=== PATIENT | female | born 1930 | race Caucasian/White ===

== ENCOUNTER 2016-12-10 13:40 | Observation (INO) | payer MEDICARE, OTHER ==
--- NOTE | 2016-12-10 14:31 | ER Document Report ---
ED Medical Screen (RME) - General Stated Complaint: CHEST PAIN Notes: Patient states she started experiencing chest pain with shortness of breath about 10:00 this morning, Was in a meeting with Dr. Jacob, and he gave her a nitroglycerin which relieved the pain. Patient feels fatigued, pain is in chest and back. No nausea or vomiting. Heart doctor is Dr. Matthews in [place]. Patient denies chest pain in triage, but states that her upper back still hurts. I have greeted and performed a rapid initial assessment of this patient. A comprehensive ED assessment and evaluation of the patient, analysis of test results and completion of the medical decision making process will be conducted by additional ED providers. TRAVEL OUTSIDE OF THE [place] 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
[2016-12-10 15:36] LABS: ABSOLUTE EOSINOPHILS # (AUTO) 0.1 10^3/uL (0.0-0.6); ABSOLUTE LYMPHOCYTES (AUTO) 1.6 10^3/uL (0.5-4.7); ABSOLUTE MONOCYTES (AUTO) 0.6 10^3/uL (0.1-1.4); BASOPHILS % (AUTO) 0.4 % (0-2); EOSINOPHILS % (AUTO) 1.8 % (0-6); HEMOGLOBIN 12.8 g/dL (12.0-15.5); HGB HCT DIFFERENCE 0.4; LYMPHOCYTES % (AUTO) 21.6 % (13-45); MEAN CORPUSCULAR HEMOGLOBIN 29.9 pg (27.0-33.4); MEAN CORPUSCULAR HGB CONC 33.7 g/dL (32.0-36.0); MEAN CORPUSCULAR VOLUME 89 fl (80-97); MONOCYTES % (AUTO) 7.9 % (3-13); RED BLOOD COUNT 4.28 10^6/uL (3.72-5.28); RED CELL DISTRIBUTION WIDTH 17.6 % (11.5-14.0); SEGMENTED NEUTROPHILS % (AUTO) 68.3 % (42-78); WHITE BLOOD COUNT 7.4 10^3/uL (4.0-10.5)
[2016-12-10 15:51] LABS: ALANINE AMINOTRANSFERASE 22 U/L (9-52); ALBUMIN 4.1 g/dL (3.5-5.0); ALKALINE PHOSPHATASE 108 U/L (38-126); ANION GAP 13 (5-19); ASPARTATE AMINO TRANSFERASE 16 U/L (14-36); BILIRUBIN,TOTAL 0.3 mg/dL (0.2-1.3); BLOOD UREA NITROGEN 16 mg/dL (7-20); CALCIUM 9.3 mg/dL (8.4-10.2); CARBON DIOXIDE 27 mmol/L (22-30); CHLORIDE 104 mmol/L (98-107); CREATINE KINASE 47 U/L (30-135); GLUCOSE 92 mg/dL (75-110); POTASSIUM 4.2 mmol/L (3.6-5.0); SODIUM 143.5 mmol/L (137-145); TOTAL PROTEIN 6.5 g/dL (6.3-8.2)
[2016-12-10 16:01] LABS: ANISOCYTOSIS 1+; CREATINE KINASE MB 0.33 ng/mL (<4.55); OVALOCYTES SLIGHT; SCHISTOCYTES SLIGHT; TOXIC GRANULATION SLIGHT; TROPONIN I < 0.012 ng/mL
--- NOTE | 2016-12-10 18:14 | ER Document Report ---
ED General - General Chief Complaint: Chest Pain Stated Complaint: CHEST PAIN Mode of Arrival: Ambulatory Information source: Patient Notes: 85-year-old female presents with complaints of chest pain radiating to her back associated with shortness of breath lightheadedness. Patient was given nitroglycerin by which resolved her chest pain. Patient admits to history of A. fib denies any previous cardiac history otherwise TRAVEL OUTSIDE OF THE [place] IN LAST 30 DAYS: No - HPI Onset: Just prior to arrival Onset/Duration: Sudden Quality of pain: Achy Severity: Mild Pain Level: 1 Associated symptoms: Chest pain, Shortness of breath Exacerbated by: Denies Relieved by: Denies Similar symptoms previously: No Recently seen / treated by doctor: No - Related Data Allergies/Adverse Reactions: No Known Allergies Allergy (Verified 01/06/16 17:57) Past Medical History - Social History Smoking Status: Never Smoker Cigarette use (# per day): No Chew tobacco use (# tins/day): No Smoking Education Provided: No Frequency of alcohol use: None Drug Abuse: None Family History: Reviewed & Not Pertinent, CAD, DM Patient has suicidal ideation: No Patient has homicidal ideation: No - Past Medical History Cardiac Medical History: Reports: Hx Atrial Fibrillation, Hx Coronary Artery Disease - on meds, Hx Hypertension - on meds Denies: Hx Heart Attack Pulmonary Medical History: Denies: Hx Asthma, Hx Bronchitis, Hx COPD, Hx Pneumonia Neurological Medical History: Denies: Hx Cerebrovascular Accident, Hx Seizures Renal/ Medical History: Denies: Hx Peritoneal Dialysis GI Medical History: Reports: Hx Diverticulitis, Hx Gastroesophageal Reflux Disease Musculoskeltal Medical History: 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 Denies recent illness. EENT: Denies eye, ear, throat, or mouth pain or symptoms. Denies nasal or sinus congestion or discharge. Denies throat, tongue, or mouth swelling or difficulty swallowing. CARDIOVASCULAR: Admits to chest pain RESPIRATORY: Admits shortness of breath. GASTROINTESTINAL: Denies abdominal pain or distention. Denies nausea, vomiting , or diarrhea. Denies blood in vomitus, stools, or per rectum. Denies black, tarry stools. Denies constipation. GENITOURINARY: Denies difficulty urinating, painful urination, burning, frequency, blood in urine, or discharge. FEMALE GENITOURINARY: Denies vaginal bleeding, heavy or abnormal periods, irregular periods. Denies vaginal discharge or odor. MUSCULOSKELETAL: Denies back or neck pain or stiffness. Denies joint pain or swelling. SKIN: Denies rash, lesions or sores. HEMATOLOGIC : Denies easy bruising or bleeding. LYMPHATIC: Denies swollen, enlarged glands. NEUROLOGICAL: Denies confusion or altered mental status. Denies passing out or loss of consciousness. Denies dizziness or lightheadedness. Denies headache. Denies weakness or paralysis or loss of use of either side. Denies problems with gait or speech. Denies sensory loss, numbness, or tingling. Denies seizures. PSYCHIATRIC: Denies anxiety or stress. Denies depression, suicidal ideation, or homicidal ideation. ALL OTHER SYSTEMS REVIEWED AND NEGATIVE. Dictation was performed using [employer] voice recognition software PHYSICAL EXAMINATION: GENERAL: Well-appearing, well-nourished and in no acute distress. HEAD: Atraumatic, normocephalic. EYES: Pupils equal round and reactive to light, extraocular movements intact, conjunctiva are normal. ENT: Nares patent, oropharynx clear without exudates. Moist mucous membranes. NECK: Normal range of motion, supple without lymphadenopathy LUNGS: Breath sounds clear to auscultation bilaterally and equal. No wheezes rales or rhonchi. HEART: Regular rate and rhythm without murmurs ABDOMEN: Soft, nontender, nondistended abdomen. No guarding, no rebound. No masses appreciated. Female : deferred Musculoskeletal: Normal range of motion, no pitting or edema. No cyanosis. NEUROLOGICAL: Cranial nerves grossly intact. Normal speech, normal gait. Normal sensory, motor exams PSYCH: Normal mood, normal affect. SKIN: Warm, Dry, normal turgor, no rashes or lesions noted. Course - Re-evaluation Re-evalutation: 12/10/16 19:16 Physical examination notes no significant abnormality, patient will be admitted to hospital service to trend the cardiac enzymes - Laboratory Result Diagrams: 12/10/16 15:10 12/10/16 15:10 Laboratory results interpreted by me: 12/10/16 15:10 RDW 17.6 H - Diagnostic Test Radiology reviewed: Image reviewed, Reports reviewed - EKG Interpretation by Me EKG shows normal: Sinus rhythm, [place], Intervals, QRS Complexes Discharge - Discharge Clinical Impression: Chest pain Qualifiers: Chest pain type: unspecified Qualified Code(s): R07.9 - Chest pain, unspecified Condition: Stable Disposition: ADMITTED OBSERVATION Admitting Provider: Hospitalist Unit Admitted: Telemetry Referrals: CAROLANN WILLIS MD [Primary Care Provider] - Follow up as needed
[2016-12-10] MEDS ORDERED: ACETAMINOPHEN 325 MG TABLET PO PRN (18:56)
[2016-12-10] MEDS ORDERED: ONDANSETRON HCL INJ/PF 4 MG/2 ML SDV IV PRN (18:56)
[2016-12-10] MEDS ORDERED: OXYCODONE-ACETAMINOPHEN 5-325 MG TABLET PO PRN (18:56)
--- NOTE | 2016-12-10 19:15 | PDOC H&P ---
History of Present Illness Admission Date/PCP: CAROLANN WILLIS MD Patient complains of: Chest pain History of Present Illness: RIGOBERTO MTZ is a 85 year old female presents to the emergency department from home with recurring chest pain, described as sharp, stabbing pain that starts between her shoulder blades radiates across her back and then through to her front substernal and is associated with shortness of breath, dizziness. It was relieved with a single sublingual nitroglycerin and she's been taking Tums getting some relief from last couple of weeks. She can think of no exacerbating factors in fact most of the episodes occur while at rest. She has similar episode in June 2016 but was found to be severely anemic with a hemoglobin of 4 and her symptoms resolved after transfusion. She has been receiving IV iron ever since until last week. She has undergone upper and lower endoscopy without any significant findings other than a hiatal hernia. She has no history of gastritis, esophagitis, GERD. Prior to that she had an episode of December 2015 was admitted to this hospital and underwent a cardiac rule out and ultimately a Cardiolite stress test that was interpreted as negative for acute cardiac ischemia. Evaluation in the emergency department so far is unrevealing we are asked to admit for further cardiac evaluation and management. Past Medical History Cardiac Medical History: Reports: Atrial Fibrillation, Coronary Artery Disease - on meds, Hypertension - on meds Denies: Myocardial Infarction Pulmonary Medical History: Denies: Asthma, Bronchitis, Chronic Obstructive Pulmonary Disease (COPD), Pneumonia Neurological Medical History: Denies: Seizures GI Medical History: Reports: Diverticulitis, Gastroesophageal Reflux Disease Musculoskeltal Medical History: Reports: Arthritis - RA fingers Psychiatric Medical History: Reports: Depression Hematology: Reports: Anemia - hx of Denies: Sickle Cell Disease Past Surgical History Past Surgical History: Denies: Amputation, Mastectomy, Pacemaker Social History Smoking Status: Never Smoker Frequency of Alcohol Use: Rare Hx Recreational Drug Use: No Drugs: None Hx Prescription Drug Abuse: No - Advance Directive Resuscitation Status: Full Code Family History Family History: CAD, DM Parental Family History Reviewed: Yes Children Family History Reviewed: Yes Sibling(s) Family History Reviewed.: Yes Medication/Allergy Allergies/Adverse Reactions: No Known Allergies Allergy (Verified 01/06/16 17:57) Review of Systems Constitutional: ABSENT: chills, fever(s), headache(s), weight gain, weight loss Eyes: ABSENT: visual disturbances Ears: ABSENT: hearing changes Cardiovascular: PRESENT: chest pain. ABSENT: dyspnea on exertion, edema, orthropnea, palpitations Respiratory: ABSENT: cough, hemoptysis Gastrointestinal: ABSENT: abdominal pain, constipation, diarrhea, hematemesis, hematochezia, nausea, vomiting Genitourinary: ABSENT: dysuria, hematuria Musculoskeletal: ABSENT: joint swelling Integumentary: ABSENT: rash, wounds Neurological: ABSENT: abnormal gait, abnormal speech, confusion, dizziness, focal weakness, syncope Psychiatric: ABSENT: anxiety, depression Endocrine: ABSENT: cold intolerance, heat intolerance, polydipsia, polyuria Hematologic/Lymphatic: ABSENT: easy bleeding, easy bruising Physical Exam Vital Signs: Intake & Output 12/09/16 12/10/16 12/11/16 06:59 06:59 06:59 Weight 75.3 kg PHYSICAL EXAM GENERAL: NAD; well developed, well nourished; mild obese; alert and oriented to person, place, time, situation HEENT: normocephalic, atraumatic; EOMI, PERRLA, no conjunctival injection, no scleral icterus; oral mucosa moist, neck supple, no LAD, normal ROM; thyroid nonpalpable RESPIRATORY: no accessory muscle use, no increased WOB, good air entry bilaterally; no wheezes, rales, rhonchi; no inspiratory crackles CARDIO: no JVD; RRR -normal sinus rhythm on the monitor; no systolic murmur; no tachycardia VASCULAR: no carotid bruit; no abdominal bruit; no pallor; 2+ radial, DP pulse ; normal capillary refill GI: soft; nondistended; normal bowel sounds; no hepato spleno megaly; no rebound, rigidity, guarding; nontender NEURO: normal patella reflexes; normal sensation; normal motor function; no gait abnls; no dysarthria; MSK: 5/5 strength; normal ROM hips; ambulatory without assistance; no tenderness EXTREMITIES: no calf tender; no palpable cords in calf; no clubbing, cyanosis , pedal edema PSYCH: normal affect, normal mood SKIN: warm; moist; no petechiae; no telengectasias; no jaundice; no rash Results Laboratory Results: 12/10/16 15:10 12/10/16 15:10 12/10/16 12/10/16 15:10 15:10 WBC 7.4 RBC 4.28 Hgb 12.8 Hct 38.0 MCV 89 MCH 29.9 MCHC 33.7 RDW 17.6 H Plt Count 201 Seg Neutrophils % 68.3 Lymphocytes % 21.6 Monocytes % 7.9 Eosinophils % 1.8 Basophils % 0.4 Absolute Neutrophils 5.0 Absolute Lymphocytes 1.6 Absolute Monocytes 0.6 Absolute Eosinophils 0.1 Absolute Basophils 0.0 Sodium 143.5 Potassium 4.2 Chloride 104 Carbon Dioxide 27 Anion Gap 13 BUN 16 Creatinine 0.90 Est GFR ( Amer) > 60 Est GFR (Non-Af Amer) > 60 Glucose 92 Calcium 9.3 Total Bilirubin 0.3 AST 16 ALT 22 Alkaline Phosphatase 108 Total Protein 6.5 Albumin 4.1 12/10/16 12/10/16 15:10 15:10 Creatine Kinase 47 CK-MB (CK-2) 0.33 Troponin I < 0.012 Labs reviewed at all very reassuring EKG Comments: Normal sinus rhythm Impressions: Chest X-Ray 12/10/16 14:29 IMPRESSION: NO ACUTE RADIOGRAPHIC FINDING IN THE CHEST. Status: Imported from PACS - Reports reviewed Assessment & Plan - Diagnosis (1) Chest pain Qualifiers: Chest pain type: unspecified Qualified Code(s): R07.9 - Chest pain, unspecified Is this a current diagnosis for this admission?: YesPlan: Patient be admitted to the medical floor with telemetry for cardiac rule out with serial cardiac enzymes for the night. However I find her chest pain disconcerting and more worrisome for vascular disease, therefore after discussions with her including the risks and benefits of same time will order CT angiogram of the chest to rule out aortic dissection or aneurysm. Case was discussed with Dr. Garcia covering tonight follow up on the exam. (2) Anxiety Is this a current diagnosis for this admission?: YesPlan: These episodes are occurring while at rest and not under duress and no other associated anxiety symptoms so I do not think this is related. (3) Atrial fibrillation Qualifiers: Atrial fibrillation type: paroxysmal Qualified Code(s): I48.0 - Paroxysmal atrial fibrillation Plan: She is currently rate and rhythm controlled. Continue home medicines when her list becomes available. - Time Time Spent: 50 to 70 Minutes Medications reviewed and adjusted accordingly: Yes Anticipated discharge: Home Within: within 24 hours - Plan Summary Plan Summary: I explained to the patient and her family limitations we have here over the weekend including her inability to perform echocardiogram or stress testing. They are in agreement with the treatment plan outlined above and expressed no concerns to me about staying at this time. They understand the limitations are willing to accept that. Patient reports she has an appointment with her primary vocational aide Dr. Roblero on Tuesday who can arrange stress testing at that time if necessary.
--- NOTE | 2016-12-10 19:34 | EKG REPORT ---
SEVERITY:- ABNORMAL ECG - SINUS RHYTHM CONSIDER LEFT VENTRICULAR HYPERTROPHY PROBABLE INFERIOR INFARCT, AGE INDETERMINATE : Confirmed by: Howard Grace 10-Dec-2016 19:33:45
--- NOTE | 2016-12-10 21:07 | Progress Note ---
Provider Note Provider Note: 12/10/2016, 8:20 PM: I was notified at above time by patient's emergency room nurse that the IV site during the attempted CT angiogram of the chest had infiltrated, and as a result the study could not be performed. Patient was refusing any further attempts at IV site insertion and any further Xrays. I was involved in the care of another patient at that time and could not come to the patient's bedside. Speaking to the patient via the nurse's speaker phone , I discussed with her the concern of possible aortic dissection and/or aneurysm , which could potentially be fatal if not detected and treated properly in a timely fashion, which would ideally require repeat CT imaging tonight. Patient continues to refuse any further x-ray attempts tonight, even when I discussed we might be able to obtain a plain CT scan. Above implications discussed in layperson's terms. Patient's conversation is lucid and appropriate. Emergency room nurse Merced is present at her bedside and is listening in on the conversation. Patient continues to refuse any further Xray attempts tonight. I told the patient we would be requesting that she sign a refusal of care form. She stated that would be fine. 12/10/2016, 6: Contacted just now by the air analysis engineering technician that actually a CT scan of the chest without contrast had been obtained during the time when the above intravenous site had infiltrated. She will forward the images to the radiologist for reading.
[2016-12-11 10:25] VITALS: BP 160/70
--- NOTE | 2016-12-11 16:45 | PDOC DISCHARGE SUMMARY ---
General - Admit/Disc Date/PCP Admission Date/Primary Care Provider: 12/10/16 18:56 CAROLANN WILLIS MD Discharge Date: 12/11/16 - Discharge Diagnosis (1) Chest pain Is this a current diagnosis for this admission?: YesSummary: Rule out for acute cardiac ischemia with negative cardiac enzymes and negative EKG. CT of the chest was performed to evaluate for aortic dissection and aneurysm but the patient lost IV access during the procedure and no contrast was injected, she then refused to have a repeat procedure. The noncontrasted CT failed to reveal pathologic process to explain her discomfort. Her chest pain did not recur during her hospitalization. At this point she would prefer to follow-up with Dr. Patel loan review officer as scheduled on Tuesday for further recommendations including stress testing if warranted. Since she ruled out for acute cardiac ischemia do think she is safe for discharge, she can return to the emergency department if she were to have recurrent or escalating symptoms between now and then. She expresses no concerns to me today about going home. Family present at the bedside and also expressed no concerns about taking her home today (2) Anxiety Is this a current diagnosis for this admission?: Yes - Additional Information Resuscitation Status: Full Code Discharge Diet: Cardiac Discharge Activity: Activity As Tolerated Home Medications: Apixaban [Eliquis 2.5 mg Tablet] 2.5 mg PO DAILY 12/10/16 Atorvastatin Calcium [Lipitor 10 mg Tablet] 10 mg PO QHS 12/10/16 Dicyclomine HCl [Bentyl 10 mg Capsule] 10 mg PO QHS 12/10/16 Esomeprazole Mag Trihydrate [Nexium] 40 mg PO QHS 12/10/16 Flecainide Acetate [Tambocor 100 mg Tablet] 50 mg PO BID 12/10/16 Glipizide [Glipizide Xl] 5 mg PO DAILY 12/10/16 Lisinopril [Prinivil 10 mg Tablet] 10 mg PO DAILY 12/10/16 History of Present Illness Patient complains of: Chest pain History of Present Illness: RIGOBERTO MTZ is a 85 year old female presents to the emergency department from home with recurring chest pain, described as sharp, stabbing pain that starts between her shoulder blades radiates across her back and then through to her front substernal and is associated with shortness of breath, dizziness. It was relieved with a single sublingual nitroglycerin and she's been taking Tums getting some relief from last couple of weeks. She can think of no exacerbating factors in fact most of the episodes occur while at rest. She has similar episode in June 2016 but was found to be severely anemic with a hemoglobin of 4 and her symptoms resolved after transfusion. She has been receiving IV iron ever since until last week. She has undergone upper and lower endoscopy without any significant findings other than a hiatal hernia. She has no history of gastritis, esophagitis, GERD. Prior to that she had an episode of December 2015 was admitted to this hospital and underwent a cardiac rule out and ultimately a Cardiolite stress test that was interpreted as negative for acute cardiac ischemia. Evaluation in the emergency department so far is unrevealing we are asked to admit for further cardiac evaluation and management. Hospital Course Hospital Course: As above. Patient is hemodynamic stable for discharge home. Physical Exam Vital Signs: Temp Pulse Resp BP Pulse Ox 98.2 F 82 18 160/70 H 96 12/11/16 10:05 12/11/16 10:05 12/11/16 10:05 12/11/16 10:05 12/11/16 10:05 Intake & Output 12/10/16 12/11/16 12/12/16 06:59 06:59 07:59 Weight 73.9 kg PHYSICAL EXAM GENERAL: NAD; well developed, well nourished; mild obese; alert and oriented to person, place, time, situation HEENT: normocephalic, atraumatic; RESPIRATORY: no accessory muscle use, no increased WOB, good air entry bilaterally; no wheezes, rales, rhonchi; no inspiratory crackles CARDIO: no JVD; RRR -normal sinus rhythm on the monitor; no systolic murmur; no tachycardia VASCULAR: no carotid bruit; no abdominal bruit; no pallor; 2+ radial, DP pulse ; normal capillary refill GI: soft; nondistended; normal bowel sounds; NEURO: normal patella reflexes; normal sensation; normal motor function; no dysarthria; MSK: 5/5 strength; normal ROM hips; EXTREMITIES: no calf tender; no palpable cords in calf; no clubbing, cyanosis , pedal edema PSYCH: normal affect, normal mood SKIN: warm; moist; no petechiae; no telengectasias; no jaundice; no rash Results Laboratory Results: 12/10/16 12/11/16 12/11/16 19:31 01:34 07:27 Troponin I < 0.012 < 0.012 < 0.012 Impressions: Chest/Abdomen CTA 12/10/16 00:00 IMPRESSION: NO ACUTE FINDINGS SEEN ON THIS NONCONTRAST CT OF THE CHEST. NO ANEURYSM OR INTRAMURAL HEMATOMA. DISSECTION CANNOT BE EXCLUDED THEREFORE IF PERSISTENT CONCERN PATIENT WILL REQUIRE REPEAT IMAGING WITH CONTRAST. CARDIOMEGALY IN THE SETTING OF CORONARY ARTERY DISEASE. SMALL TO MODERATE HIATAL HERNIA. Chest X-Ray 12/10/16 14:29 IMPRESSION: NO ACUTE RADIOGRAPHIC FINDING IN THE CHEST. Qualifiers PATEINT BEING DISCHARGED WITH ANY OF THE FOLLOWING DIAGNOSIS?: No VTE patient discharged on overlapping Therapy?: No Plan Discharge Plan: Keep appointment with her primary loan review officer on Tuesday as scheduled; return emergency department for recurrent or escalating symptoms. Time Spent: Greater than 30 Minutes
== END 2016-12-11 11:21 | disposition home or self-care (01) ==
LOC: ER 13:40 → EH 18:56 → UNDOADMOB 19:29 → 3W 12-11 07:30
PROVIDERS: ADMIT Internal Medicine; ATTEND Internal Medicine
DX: R07.89 Other chest pain (principal); F41.9 Anxiety disorder, unspecified; I48.91 Unspecified atrial fibrillation; I25.10 Atherosclerotic heart disease of native coronary artery without angina pectoris; I10 Essential (primary) hypertension
CPT/HCPCS: 93005; 99285; 36415 ×2; 82553; 82550; 85025; 85610; 80053; 84484 ×2; 71010; 71275; 93010; G0378 ×3

== ENCOUNTER → 2017-04-19 | Outpatient (CLI) | payer MEDICARE, OTHER ==
[2017-04-19 10:57] LABS: ABSOLUTE EOSINOPHILS # (AUTO) 0.1 10^3/uL (0.0-0.6); ABSOLUTE LYMPHOCYTES (AUTO) 1.2 10^3/uL (0.5-4.7); ABSOLUTE MONOCYTES (AUTO) 0.6 10^3/uL (0.1-1.4); ABSOLUTE NEUT (AUTO) 3.5 10^3/uL (1.7-8.2); BASOPHILS % (AUTO) 0.4 % (0-2); EOSINOPHILS % (AUTO) 2.4 % (0-6); HEMATOCRIT 37.7 % (36.0-47.0); HEMOGLOBIN 12.2 g/dL (12.0-15.5); HGB HCT DIFFERENCE -1.1; LYMPHOCYTES % (AUTO) 22.7 % (13-45); MEAN CORPUSCULAR HEMOGLOBIN 29.2 pg (27.0-33.4); MEAN CORPUSCULAR HGB CONC 32.5 g/dL (32.0-36.0); MEAN CORPUSCULAR VOLUME 90 fl (80-97); MONOCYTES % (AUTO) 10.3 % (3-13); RED BLOOD COUNT 4.19 10^6/uL (3.72-5.28); RED CELL DISTRIBUTION WIDTH 12.4 % (11.5-14.0); SEGMENTED NEUTROPHILS % (AUTO) 64.2 % (42-78); WHITE BLOOD COUNT 5.5 10^3/uL (4.0-10.5)
[2017-04-19 11:29] LABS: ALANINE AMINOTRANSFERASE 23 U/L (9-52); ALBUMIN 4.3 g/dL (3.5-5.0); ALKALINE PHOSPHATASE 106 U/L (38-126); ANION GAP 11 (5-19); ASPARTATE AMINO TRANSFERASE 17 U/L (14-36); BILIRUBIN,DIRECT 0.3 mg/dL (0.0-0.4); BILIRUBIN,TOTAL 0.4 mg/dL (0.2-1.3); BLOOD UREA NITROGEN 16 mg/dL (7-20); CALCIUM 9.3 mg/dL (8.4-10.2); CARBON DIOXIDE 30 mmol/L (22-30); CHLORIDE 105 mmol/L (98-107); CHOLESTEROL 133.61 mg/dL (0-200); CREATININE RESULT 0.78 mg/dL (0.52-1.25); Direct HDL 31 mg/dL (>40); GLUCOSE 155 mg/dL (75-110); POTASSIUM 4.8 mmol/L (3.6-5.0); SODIUM 145.5 mmol/L (137-145); TOTAL PROTEIN 7.2 g/dL (6.3-8.2); TRIGLYCERIDES 169 mg/dL (<150)
[2017-04-19 11:44] LABS: DIRECT LDL 70 mg/dL (<100)
[2017-04-19 12:11] LABS: VLDL CHOLESTEROL 33.8 mg/dL (10-31)
[2017-04-21 10:38] LABS: CREATININE URINE 186.7 mg/dL (Not Estab.); MICROALBUMIN URINE 90.1 ug/mL (Not Estab.)
== END ==
LOC: OD 09:19
PROVIDERS: ATTEND Family Medicine
DX: E11.65 Type 2 diabetes mellitus with hyperglycemia (principal); D50.9 Iron deficiency anemia, unspecified; R53.83 Other fatigue; Z79.01 Long term (current) use of anticoagulants
CPT/HCPCS: 36415; 80053; 80061; 82043; 82570; 82728; 83036; 83540; 83550; 84443; 85025

== ENCOUNTER 2017-04-25 13:10 | Emergency (ER) | payer MEDICARE, OTHER ==
[2017-04-25] MEDS ORDERED: ASPIRIN 325 MG TABLET PO ONE (13:49)
--- NOTE | 2017-04-25 13:51 | ER Document Report ---
ED Medical Screen (RME) - General Chief Complaint: Chest Tightness Stated Complaint: CHEST TIGHTNESS,LEFT ARM NUMBNESS Time Seen by Provider: 04/25/17 13:48 Mode of Arrival: Wheelchair Information source: Patient, Relative TRAVEL OUTSIDE OF THE [place] IN LAST 30 DAYS: No - HPI Patient complains to provider of: CP Onset: Yesterday - pt. with h/o a fib with episode of chest tightness yesterday -- this recurred again today after diarrheal stool with radiation down L arm - Related Data Allergies/Adverse Reactions: No Known Allergies Allergy (Verified 04/25/17 13:24) Past Medical History - Social History Chew tobacco use (# tins/day): No Frequency of alcohol use: None Drug Abuse: None - Past Medical History Cardiac Medical History: Reports: Hx Atrial Fibrillation, Hx Coronary Artery Disease - on meds, Hx Hypertension - on meds Denies: Hx Heart Attack Pulmonary Medical History: Denies: Hx Asthma, Hx Bronchitis, Hx COPD, Hx Pneumonia Neurological Medical History: Denies: Hx Cerebrovascular Accident, Hx Seizures Renal/ Medical History: Denies: Hx Peritoneal Dialysis GI Medical History: Reports: Hx Diverticulitis, Hx Gastroesophageal Reflux Disease Musculoskeltal Medical History: 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
[2017-04-25 14:34] LABS: ABSOLUTE EOSINOPHILS # (AUTO) 0.1 10^3/uL (0.0-0.6); ABSOLUTE LYMPHOCYTES (AUTO) 1.7 10^3/uL (0.5-4.7); ABSOLUTE MONOCYTES (AUTO) 0.7 10^3/uL (0.1-1.4); ABSOLUTE NEUT (AUTO) 4.1 10^3/uL (1.7-8.2); BASOPHILS % (AUTO) 0.4 % (0-2); HEMATOCRIT 36.3 % (36.0-47.0); HGB HCT DIFFERENCE -0.3; LYMPHOCYTES % (AUTO) 25.8 % (13-45); MEAN CORPUSCULAR HEMOGLOBIN 29.7 pg (27.0-33.4); MEAN CORPUSCULAR HGB CONC 33.1 g/dL (32.0-36.0); MEAN CORPUSCULAR VOLUME 90 fl (80-97); RED BLOOD COUNT 4.04 10^6/uL (3.72-5.28); RED CELL DISTRIBUTION WIDTH 12.8 % (11.5-14.0); SEGMENTED NEUTROPHILS % (AUTO) 61.8 % (42-78); WHITE BLOOD COUNT 6.7 10^3/uL (4.0-10.5)
--- NOTE | 2017-04-25 14:44 | RADIOLOGY REPORT (SQ) ---
EXAM DESCRIPTION: CHEST PA/LAT COMPLETED DATE/TIME: 04/25/2017 2:34 pm REASON FOR STUDY: cp COMPARISON: September 2016 EXAM PARAMETERS: NUMBER OF VIEWS: two views TECHNIQUE: Digital Frontal and Lateral radiographic views of the chest acquired. RADIATION DOSE: NA LIMITATIONS: none FINDINGS: LUNGS AND PLEURA: No opacities, masses or pneumothorax. No pleural effusion. MEDIASTINUM AND HILAR STRUCTURES: No masses or contour abnormalities. HEART AND VASCULAR STRUCTURES: Heart normal size. No evidence for failure. BONES: No acute findings. HARDWARE: None in the chest. OTHER: No other significant finding. IMPRESSION: NO SIGNIFICANT RADIOGRAPHIC FINDING IN THE CHEST. TECHNICAL DOCUMENTATION: JOB ID: [id number] [employer]- All Rights Reserved
[2017-04-25 14:54] LABS: CREATINE KINASE MB 0.63 ng/mL (<4.55)
[2017-04-25 14:58] LABS: TROPONIN I < 0.012 ng/mL
[2017-04-25 15:19] LABS: ALANINE AMINOTRANSFERASE 29 U/L (9-52); ALBUMIN 4.2 g/dL (3.5-5.0); ALKALINE PHOSPHATASE 109 U/L (38-126); ANION GAP 9 (5-19); ASPARTATE AMINO TRANSFERASE 19 U/L (14-36); BILIRUBIN,DIRECT 0.3 mg/dL (0.0-0.4); BILIRUBIN,TOTAL 0.4 mg/dL (0.2-1.3); BLOOD UREA NITROGEN 23 mg/dL (7-20); CALCIUM 9.2 mg/dL (8.4-10.2); CARBON DIOXIDE 28 mmol/L (22-30); CHLORIDE 107 mmol/L (98-107); CREATINE KINASE 48 U/L (30-135); CREATININE RESULT 0.92 mg/dL (0.52-1.25); GLUCOSE 106 mg/dL (75-110); POTASSIUM 4.4 mmol/L (3.6-5.0); SODIUM 143.5 mmol/L (137-145); TOTAL PROTEIN 7.1 g/dL (6.3-8.2)
[2017-04-25] MEDS ORDERED: ASPIRIN 81 MG TABLET, CHEWABLE PO ONE (18:34)
--- NOTE | 2017-04-25 19:36 | ER Document Report ---
ED Cardiac - General Chief Complaint: Chest Tightness Stated Complaint: CHEST TIGHTNESS,LEFT ARM NUMBNESS Time Seen by Provider: 04/25/17 13:48 Mode of Arrival: Wheelchair Notes: The patient is an 86-year-old female, past medical history A. fib (on sotolol and Eliquis), hypertension, NIDDM, presents with a 45 minute episode of left chest pressure radiating to her left shoulder. She said that this is worse than her prior episodes. She said it resolved on its own without any nitro or other intervention. Patient also had multiple episodes of runny diarrhea earlier in the day before the chest pain started. Her only new medication is vitamin D3 and she denies any recent antibiotic use or travel. Patient did not receive any aspirin today. Patient is currently chest pain-free on my evaluation. A stress test was 7 months ago, which she says did not show any abnormalities. She has never had a heart catheterization. Her chargeback analyst is at [place]. Denies shortness of breath, numbness, tingling, back pain, fevers, leg swelling, cough, nausea, vomiting, abdominal pain, hematochezia or fevers. TRAVEL OUTSIDE OF THE [place] IN LAST 30 DAYS: No - Related Data Allergies/Adverse Reactions: No Known Allergies Allergy (Verified 04/25/17 13:24) Past Medical History - General Information source: Patient, Relative - Social History Smoking Status: Never Smoker Chew tobacco use (# tins/day): No Frequency of alcohol use: None Drug Abuse: None Family History: Reviewed & Not Pertinent, CAD, DM - Past Medical History Cardiac Medical History: Reports: Hx Atrial Fibrillation, Hx Coronary Artery Disease - on meds, Hx Hypertension - on meds Denies: Hx Heart Attack Pulmonary Medical History: Denies: Hx Asthma, Hx Bronchitis, Hx COPD, Hx Pneumonia Neurological Medical History: Denies: Hx Cerebrovascular Accident, Hx Seizures Renal/ Medical History: Denies: Hx Peritoneal Dialysis GI Medical History: Reports: Hx Diverticulitis, Hx Gastroesophageal Reflux Disease Musculoskeltal Medical History: 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 RESPIRATORY: -cough, -SOB GASTROINTESTINAL: -abdominal pain, - nausea, -vomiting, +diarrhea GENITOURINARY: -dysuria, -hematuria MUSCULOSKELETAL: -back pain, -neck pain SKIN: -rash or skin lesions. HEMATOLOGIC: -easy bruising or bleeding. LYMPHATIC: -swollen, enlarged glands. NEUROLOGICAL: -altered mental status or loss of consciousness, -headache, - neurologic symptoms PSYCHIATRIC: -anxiety, -depression. ALL OTHER SYSTEMS REVIEWED AND NEGATIVE. Physical Exam - Vital signs Vitals: Temp Pulse Resp BP Pulse Ox 98.0 F 58 L 18 156/84 H 98 04/25/17 13:28 04/25/17 13:28 04/25/17 13:28 04/25/17 13:28 04/25/17 13:28 - Notes Notes: PHYSICAL EXAMINATION: GENERAL: Well-appearing, well-nourished and in no acute distress. HEAD: Atraumatic, normocephalic. EYES: Pupils equal round and reactive to light, extraocular movements intact, sclera anicteric, conjunctiva are normal. ENT: nares patent, oropharynx clear without exudates. Moist mucous membranes. NECK: Normal range of motion, supple without lymphadenopathy LUNGS: Breath sounds clear to auscultation bilaterally and equal. No wheezes rales or rhonchi. HEART: Regular rate and rhythm without murmurs ABDOMEN: Soft, nontender, normoactive bowel sounds. No guarding, no rebound. No masses appreciated. EXTREMITIES: Normal range of motion, no pitting or edema. No cyanosis. NEUROLOGICAL: Cranial nerves grossly intact. Normal speech, normal gait. Normal sensory and motor exams. PSYCH: Normal mood, normal affect. SKIN: Warm, Dry, normal turgor, no rashes or lesions noted. Course - Re-evaluation Re-evalutation: Patient no longer having any chest pain and it resolved without any intervention. Her HEART score is 6. Symptoms atypical for PE or aortic dissection at this time. Her primary care physician is Dr. Ursula Stratton and her chargeback analyst is located at [place]. Patient's last stress test was 7 months ago, but she was not having chest pain similar to this episode. 04/25/17 19:[address] Snyder (hospitalist) and he recommends transferring patient to center with Cardiac Cath capabilities. 04/25/17 20:05 Spoke to [facility] [place] and awaiting callback from Hospitalist. 04/25/17 20:[address] Bryan Maguire ([facility] Hospitalist) and he has accepted patient. - Vital Signs Vital signs: Temp Pulse Resp BP Pulse Ox 98.1 F 58 L 17 167/96 H 94 04/25/17 19:46 04/25/17 13:28 04/25/17 18:28 04/25/17 18:28 04/25/17 18:01 - Laboratory Result Diagrams: 04/25/17 14:14 04/25/17 14:14 Laboratory results interpreted by me: 04/25/17 14:14 BUN 23 H Est GFR (Non-Af Amer) 58 L - Diagnostic Test Radiology reviewed: Image reviewed, Reports reviewed - EKG Interpretation by Me EKG shows normal: Sinus rhythm, [place], QRS Complexes, ST-T Waves Rate: Normal Additional EKG results interpreted by me: Prolonged QTc (500) Discharge - Discharge Clinical Impression: Chest pain Qualifiers: Chest pain type: unspecified Qualified Code(s): R07.9 - Chest pain, unspecified Condition: Stable Disposition: [facility] Referrals: YOLANDA STRATTON MD [Primary Care Provider] - Follow up as needed
[2017-04-25 21:38] VITALS: BP 165/70
--- NOTE | 2017-04-27 16:09 | EKG REPORT ---
SEVERITY:- ABNORMAL ECG - SINUS RHYTHM ATRIAL PREMATURE COMPLEX LEFT VENTRICULAR HYPERTROPHY BORDERLINE PROLONGED QT INTERVAL : Confirmed by: Gem Dave MD 27-Apr-2017 16:09:00
== END 2017-04-25 21:35 | disposition short-term general hospital (02) ==
LOC: ER 13:10
DX: R07.89 Other chest pain (principal); R19.7 Diarrhea, unspecified; I25.10 Atherosclerotic heart disease of native coronary artery without angina pectoris; I10 Essential (primary) hypertension; I48.91 Unspecified atrial fibrillation; Z79.01 Long term (current) use of anticoagulants; Z79.899 Other long term (current) drug therapy; E11.9 Type 2 diabetes mellitus without complications; Z82.49 Family history of ischemic heart disease and other diseases of the circulatory system
CPT/HCPCS: 93005; 99285; 36415; 82553; 82550; 85025; 80053; 84484; 71020; 93010; A9270

== ENCOUNTER → 2017-05-05 | Outpatient (CLI) | payer MEDICARE, OTHER ==
--- NOTE | 2017-05-05 16:01 | RADIOLOGY REPORT (SQ) ---
EXAM DESCRIPTION: HAND BILATERAL 3 VIEWS COMPLETED DATE/TIME: 05/05/2017 12:18 pm REASON FOR STUDY: OTHER HYPERTROPHIC OSTEOARTHROPATHY, UNSPECIFIED HAND M89.449 OTHER HYPERTROPHIC OSTEOARTHROPATHY, UNSPECIFIED [facility] COMPARISON: None. EXAM PARAMETERS: NUMBER OF VIEWS: Three views right hand. Three views left hand. TECHNIQUE: AP, lateral and oblique radiographic images acquired of bilateral hands. LIMITATIONS: None. FINDINGS: RIGHT HAND: MINERALIZATION: Normal. BONES: No acute fracture or dislocation. No worrisome bone lesions. Osteophytes are present in the di stal interphalangeal joints of the right 2nd, 3rd, and 5th digits. JOINTS: Considerable degenerative joint changes seen at the 1st carpometacarpal joint of each hand, r ight more than left. SOFT TISSUES: No swelling. No calcifications. OTHER: No other significant finding. LEFT HAND: MINERALIZATION: Normal. BONES: No acute fracture or dislocation. No worrisome bone lesions. Smaller osteophytes are seen in t he left distal interphalangeal joints of the 2nd and 5th digits. JOINTS: Considerable degenerative joint changes seen at the 1st carpometacarpal joint of each hand, r ight more than left. SOFT TISSUES: No swelling. No calcifications. OTHER: No other significant finding. IMPRESSION: Degenerative joint disease as described. TECHNICAL DOCUMENTATION: JOB ID: [id number] [employer] All Rights Reserved
== END ==
LOC: OD 11:42
PROVIDERS: ATTEND Family Medicine
DX: M89.44 Other hypertrophic osteoarthropathy, hand (principal); R07.89 Other chest pain

== ENCOUNTER → 2017-08-16 | Outpatient (CLI) | payer MEDICARE, OTHER ==
[2017-08-16 10:16] LABS: ABSOLUTE EOSINOPHILS # (AUTO) 0.1 10^3/uL (0.0-0.6); ABSOLUTE LYMPHOCYTES (AUTO) 1.3 10^3/uL (0.5-4.7); ABSOLUTE MONOCYTES (AUTO) 0.5 10^3/uL (0.1-1.4); BASOPHILS % (AUTO) 0.4 % (0-2); EOSINOPHILS % (AUTO) 1.4 % (0-6); HEMATOCRIT 38.6 % (36.0-47.0); HEMOGLOBIN 12.5 g/dL (12.0-15.5); HGB HCT DIFFERENCE -1.1; LYMPHOCYTES % (AUTO) 22.1 % (13-45); MEAN CORPUSCULAR HEMOGLOBIN 27.7 pg (27.0-33.4); MEAN CORPUSCULAR HGB CONC 32.4 g/dL (32.0-36.0); MEAN CORPUSCULAR VOLUME 85 fl (80-97); MONOCYTES % (AUTO) 9.1 % (3-13); RED BLOOD COUNT 4.52 10^6/uL (3.72-5.28); RED CELL DISTRIBUTION WIDTH 13.9 % (11.5-14.0)
[2017-08-16 10:46] LABS: ANION GAP 12 (5-19); BLOOD UREA NITROGEN 22 mg/dL (7-20); CALCIUM 9.3 mg/dL (8.4-10.2); CARBON DIOXIDE 27 mmol/L (22-30); CHLORIDE 105 mmol/L (98-107); CREATININE RESULT 0.86 mg/dL (0.52-1.25); GLUCOSE 128 mg/dL (75-110); POTASSIUM 4.8 mmol/L (3.6-5.0); SODIUM 144.2 mmol/L (137-145)
[2017-08-16 11:28] LABS: THYROID STIMULATING HORMONE 0.77 uIU/mL (0.47-4.68)
== END ==
LOC: OD 09:06
PROVIDERS: ATTEND Family Medicine
DX: E11.65 Type 2 diabetes mellitus with hyperglycemia (principal); Z79.01 Long term (current) use of anticoagulants; I48.2 Chronic atrial fibrillation; E55.9 Vitamin D deficiency, unspecified; E53.9 Vitamin B deficiency, unspecified
CPT/HCPCS: 36415; 80048; 82306; 82607; 83036; 84439; 84443; 85025

== ENCOUNTER 2017-09-04 10:31 | Emergency (ER) | payer MEDICARE, OTHER ==
[2017-09-04] MEDS ORDERED: ASPIRIN 325 MG TABLET PO ONE (10:53)
--- NOTE | 2017-09-04 10:57 | ER Document Report ---
ED Medical Screen (RME) - General Chief Complaint: Chest Pain Stated Complaint: CHEST PAIN Time Seen by Provider: 09/04/17 10:53 Mode of Arrival: Wheelchair Information source: Patient TRAVEL OUTSIDE OF THE [place] IN LAST 30 DAYS: No - HPI Patient complains to provider of: cp Onset: Yesterday - pt. with c/o L arm pain yesterday -- this am developed SSCP ( "heaviness") and friends of her's drove her here for evlauation. She did not take ASA today. - Related Data Allergies/Adverse Reactions: No Known Allergies Allergy (Verified 04/25/17 13:24) Past Medical History - Social History Frequency of alcohol use: Rare Drug Abuse: None - Past Medical History Cardiac Medical History: Reports: Hx Atrial Fibrillation, Hx Coronary Artery Disease - on meds, Hx Hypertension - on meds Denies: Hx Heart Attack Pulmonary Medical History: Denies: Hx Asthma, Hx Bronchitis, Hx COPD, Hx Pneumonia Neurological Medical History: Denies: Hx Cerebrovascular Accident, Hx Seizures Renal/ Medical History: Denies: Hx Peritoneal Dialysis GI Medical History: Reports: Hx Diverticulitis, Hx Gastroesophageal Reflux Disease Musculoskeltal Medical History: 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
[2017-09-04 11:24] LABS: ABSOLUTE EOSINOPHILS # (AUTO) 0.1 10^3/uL (0.0-0.6); ABSOLUTE LYMPHOCYTES (AUTO) 1.9 10^3/uL (0.5-4.7); ABSOLUTE MONOCYTES (AUTO) 0.6 10^3/uL (0.1-1.4); ABSOLUTE NEUT (AUTO) 3.5 10^3/uL (1.7-8.2); BASOPHILS % (AUTO) 0.5 % (0-2); EOSINOPHILS % (AUTO) 2.3 % (0-6); HEMATOCRIT 36.9 % (36.0-47.0); HGB HCT DIFFERENCE -0.9; LYMPHOCYTES % (AUTO) 30.2 % (13-45); MEAN CORPUSCULAR HEMOGLOBIN 27.9 pg (27.0-33.4); MEAN CORPUSCULAR HGB CONC 32.6 g/dL (32.0-36.0); MEAN CORPUSCULAR VOLUME 85 fl (80-97); MONOCYTES % (AUTO) 9.5 % (3-13); RED BLOOD COUNT 4.32 10^6/uL (3.72-5.28); SEGMENTED NEUTROPHILS % (AUTO) 57.5 % (42-78); WHITE BLOOD COUNT 6.2 10^3/uL (4.0-10.5)
[2017-09-04 11:38] LABS: ALANINE AMINOTRANSFERASE 26 U/L (9-52); ALBUMIN 4.2 g/dL (3.5-5.0); ALKALINE PHOSPHATASE 90 U/L (38-126); ANION GAP 12 (5-19); ASPARTATE AMINO TRANSFERASE 19 U/L (14-36); BILIRUBIN,DIRECT 0.3 mg/dL (0.0-0.4); BILIRUBIN,TOTAL 0.3 mg/dL (0.2-1.3); BLOOD UREA NITROGEN 22 mg/dL (7-20); CALCIUM 9.3 mg/dL (8.4-10.2); CARBON DIOXIDE 29 mmol/L (22-30); CHLORIDE 104 mmol/L (98-107); CREATINE KINASE 56 U/L (30-135); CREATININE RESULT 0.96 mg/dL (0.52-1.25); GLUCOSE 106 mg/dL (75-110); POTASSIUM 4.3 mmol/L (3.6-5.0); SODIUM 145.1 mmol/L (137-145); TOTAL PROTEIN 6.6 g/dL (6.3-8.2)
[2017-09-04 11:51] LABS: CREATINE KINASE MB 0.79 ng/mL (<4.55)
--- NOTE | 2017-09-04 11:52 | RADIOLOGY REPORT (SQ) ---
EXAM DESCRIPTION: CHEST PA/LAT COMPLETED DATE/TIME: 09/04/2017 11:25 am REASON FOR STUDY: cp COMPARISON: 04/25/2017 EXAM PARAMETERS: NUMBER OF VIEWS: two views TECHNIQUE: Digital Frontal and Lateral radiographic views of the chest acquired. RADIATION DOSE: NA LIMITATIONS: none FINDINGS: LUNGS AND PLEURA: No opacities, masses or pneumothorax. No pleural effusion. MEDIASTINUM AND HILAR STRUCTURES: No masses or contour abnormalities. HEART AND VASCULAR STRUCTURES: Heart normal size. No evidence for failure. BONES: No acute findings. HARDWARE: None in the chest. OTHER: No other significant finding. IMPRESSION: NO SIGNIFICANT RADIOGRAPHIC FINDING IN THE CHEST. TECHNICAL DOCUMENTATION: JOB ID: [id number] [employer]- All Rights Reserved
[2017-09-04 11:56] LABS: TROPONIN I < 0.012 ng/mL
--- NOTE | 2017-09-04 12:41 | ER Document Report ---
ED General - General Chief Complaint: Chest Pain Stated Complaint: CHEST PAIN Time Seen by Provider: 09/04/17 10:53 Mode of Arrival: Wheelchair Information source: Patient Notes: 86-year-old female presents with complaints of chest heaviness left arm heaviness. Patient notes left arm heaviness started yesterday the chest pain occurred today. Patient notes that this occurs whenever she gets into an argument and she has been in an argument since yesterday. Patient had a normal heart catheterization last year, denies any fevers or chills denies any nausea vomiting or diarrhea Patient is insistent that she leave, and has requested to leave prior to myself seeing the patient TRAVEL OUTSIDE OF THE [place] IN LAST 30 DAYS: No - HPI Onset: Yesterday Onset/Duration: Sudden Quality of pain: Pressure Severity: Mild Pain Level: 1 Associated symptoms: Body/muscle aches, Chest pain Exacerbated by: Other - Stress Relieved by: Denies Similar symptoms previously: Yes Recently seen / treated by doctor: Yes - Related Data Allergies/Adverse Reactions: No Known Allergies Allergy (Verified 04/25/17 13:24) Home Medications: Current Home Medications Apixaban [Eliquis 5 mg Tablet] 5 mg PO DAILY 09/04/17 [History] Atorvastatin Calcium [Lipitor 10 mg Tablet] 10 mg PO QHS 09/04/17 [History] Chlorthalidone 25 mg PO DAILY 09/04/17 [History] Esomeprazole Mag Trihydrate [Nexium] 40 mg PO QHS 09/04/17 [History] Glipizide [Glipizide Xl] 1 tab PO DAILY 09/04/17 [History] Lisinopril 20 mg PO BID 09/04/17 [History] Sotalol HCl [Sotalol] 40 mg PO BID 09/04/17 [History] Past Medical History - General Information source: Patient - Social History Smoking Status: Never Smoker Cigarette use (# per day): No Chew tobacco use (# tins/day): No Smoking Education Provided: No Frequency of alcohol use: Rare Drug Abuse: None Family History: Reviewed & Not Pertinent, CAD, DM Patient has suicidal ideation: No Patient has homicidal ideation: No - Past Medical History Cardiac Medical History: Reports: Hx Atrial Fibrillation, Hx Coronary Artery Disease - on meds, Hx Hypertension - on meds Denies: Hx Heart Attack Pulmonary Medical History: Denies: Hx Asthma, Hx Bronchitis, Hx COPD, Hx Pneumonia Neurological Medical History: Denies: Hx Cerebrovascular Accident, Hx Seizures Renal/ Medical History: Denies: Hx Peritoneal Dialysis GI Medical History: Reports: Hx Diverticulitis, Hx Gastroesophageal Reflux Disease Musculoskeltal Medical History: 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 Denies recent illness. EENT: Denies eye, ear, throat, or mouth pain or symptoms. Denies nasal or sinus congestion or discharge. Denies throat, tongue, or mouth swelling or difficulty swallowing. CARDIOVASCULAR: Admits to chest pressure RESPIRATORY: Denies cough, cold, or chest congestion. Denies shortness of breath, difficulty breathing, or wheezing. GASTROINTESTINAL: Denies abdominal pain or distention. Denies nausea, vomiting , or diarrhea. Denies blood in vomitus, stools, or per rectum. Denies black, tarry stools. Denies constipation. GENITOURINARY: Denies difficulty urinating, painful urination, burning, frequency, blood in urine, or discharge. FEMALE GENITOURINARY: Denies vaginal bleeding, heavy or abnormal periods, irregular periods. Denies vaginal discharge or odor. MUSCULOSKELETAL: Admits to left arm pain SKIN: Denies rash, lesions or sores. HEMATOLOGIC : Denies easy bruising or bleeding. LYMPHATIC: Denies swollen, enlarged glands. NEUROLOGICAL: Denies confusion or altered mental status. Denies passing out or loss of consciousness. Denies dizziness or lightheadedness. Denies headache. Denies weakness or paralysis or loss of use of either side. Denies problems with gait or speech. Denies sensory loss, numbness, or tingling. Denies seizures. PSYCHIATRIC: Denies anxiety or stress. Denies depression, suicidal ideation, or homicidal ideation. ALL OTHER SYSTEMS REVIEWED AND NEGATIVE. PHYSICAL EXAMINATION: GENERAL: Well-appearing, well-nourished and in no acute distress. HEAD: Atraumatic, normocephalic. EYES: Pupils equal round and reactive to light, extraocular movements intact, conjunctiva are normal. ENT: Nares patent, oropharynx clear without exudates. Moist mucous membranes. NECK: Normal range of motion, supple without lymphadenopathy LUNGS: Breath sounds clear to auscultation bilaterally and equal. No wheezes rales or rhonchi. HEART: Regular rate and rhythm without murmurs ABDOMEN: Soft, nontender, nondistended abdomen. No guarding, no rebound. No masses appreciated. Female : deferred Musculoskeletal: Normal range of motion, no pitting or edema. No cyanosis. NEUROLOGICAL: Cranial nerves grossly intact. Normal speech, normal gait. Normal sensory, motor exams PSYCH: Normal mood, normal affect. SKIN: Warm, Dry, normal turgor, no rashes or lesions noted. Dictation was performed using [employer] voice recognition software Physical Exam - Vital signs Vitals: Resp Pulse Ox 12 91 L 09/04/17 11:25 09/04/17 11:25 Course - Re-evaluation Re-evalutation: 09/04/17 15:29 Patient's initial workup was negative, however, I believe the patient would require inpatient evaluation for her chest pain given her age and risk factors but both she and family members state that she does not wish to stay that this occurs often and that she wishes to go home. I explained to them that I cannot in good conscience let them just leave without them promising to come back immediately if there are any concerns, they both promised that they will return at any time and that they only live a few blocks away. They understand that this is not a complete cardiac evaluation that there are multiple possibilities including After performing a Medical Screening Examination, I spoke with the patient at length in regards to leaving the hospital against medical advice. I do not believe the patient should leave but the patient is alert oriented x4, understands the risks and benefits of staying and leaving including disability and . Pt understands that she can return at any time for further care and is more than welcome to do so. Pt verbalizes this understanding. - Vital Signs Vital signs: Temp Pulse Resp BP Pulse Ox 98.0 F 59 L 17 129/91 H 97 09/04/17 13:07 09/04/17 13:07 09/04/17 13:07 09/04/17 13:07 09/04/17 13:07 - Laboratory Result Diagrams: 09/04/17 11:05 09/04/17 11:05 Laboratory results interpreted by me: 09/04/17 11:05 Sodium 145.1 H BUN 22 H Est GFR (Non-Af Amer) 55 L - Diagnostic Test Radiology reviewed: Image reviewed, Reports reviewed - EKG Interpretation by Me EKG shows normal: Sinus rhythm, [place], Intervals, QRS Complexes Discharge - Discharge Clinical Impression: Chest pain Qualifiers: Chest pain type: unspecified Qualified Code(s): R07.9 - Chest pain, unspecified Atrial fibrillation Qualifiers: Atrial fibrillation type: chronic Qualified Code(s): I48.2 - Chronic atrial fibrillation Condition: Stable Disposition: AGAINST MEDICAL ADVICE Instructions: Chest Pain of Unclear Cause ([facility]) Referrals: YOLANDA STRATTON MD [Primary Care Provider] - Follow up tomorrow
[2017-09-04 13:30] VITALS: BP 129/91
--- NOTE | 2017-09-04 17:37 | EKG REPORT ---
SEVERITY:- ABNORMAL ECG - SINUS ARRHYTHMIA, RATE 48-68 PROBABLE INFERIOR INFARCT, AGE INDETERMINATE : Confirmed by: Vahid Dennis MD 04-Sep-2017 17:36:47
== END 2017-09-04 13:07 | disposition left against medical advice (07) ==
LOC: ER 10:31
DX: R07.9 Chest pain, unspecified (principal); Z79.899 Other long term (current) drug therapy
CPT/HCPCS: 93005; 99285; 36415; 82553; 82550; 85025; 80053; 84484; 71020; 93010; A9270

== ENCOUNTER 2017-09-25 02:38 | Emergency (ER) | payer MEDICARE, OTHER ==
[2017-09-25] MEDS ORDERED: NORMAL SALINE 500 ML IV ONE (02:59)
[2017-09-25] MEDS ORDERED: ONDANSETRON HCL INJ/PF 4 MG/2 ML SDV IV ONE (03:00)
--- NOTE | 2017-09-25 03:00 | ER Document Report ---
ED General - General Chief Complaint: Nausea/Vomiting Stated Complaint: NAUSEA AND VOMITING Time Seen by Provider: 09/25/17 02:48 Notes: Patient is an 86-year-old female presents with complaint vomiting diarrhea. Since started today. She says afterwards started developing chest pressure and therefore she came to the ER. She is given aspirin and nitro any months and her chest pressure is gone but she still feels nauseous. She says she was just started 2 new medications by her doctor. One was for diabetes and one was for high blood pressure. She is unsure if these medications are causing her vomiting diarrhea. She does have a history of some coronary disease. She did have a heart cath 6 months ago which did not show any syncopal lesions. She has been here several times in the past for workups for chest pain. She denies any fevers. She denies any blood in her stool. No blood or emesis. She said she actually does not have much social abdominal pain with no vomiting diarrhea. She has no other complaints at this time. TRAVEL OUTSIDE OF THE [place] IN LAST 30 DAYS: No - Related Data Allergies/Adverse Reactions: No Known Allergies Allergy (Verified 04/25/17 13:24) Home Medications: Current Home Medications Amlodipine Besylate [Norvasc 5 mg Tablet] 5 mg PO DAILY 09/25/17 [History] Spironolactone [Aldactone 25 mg Tablet] 12.5 mg PO QAM 09/25/17 [History] Past Medical History - Social History Smoking Status: Never Smoker Frequency of alcohol use: None Drug Abuse: None Family History: Reviewed & Not Pertinent, CAD, DM - Past Medical History Cardiac Medical History: Reports: Hx Atrial Fibrillation, Hx Coronary Artery Disease - on meds, Hx Hypertension - on meds Denies: Hx Heart Attack Pulmonary Medical History: Denies: Hx Asthma, Hx Bronchitis, Hx COPD, Hx Pneumonia Neurological Medical History: Denies: Hx Cerebrovascular Accident, Hx Seizures Renal/ Medical History: Denies: Hx Peritoneal Dialysis GI Medical History: Reports: Hx Diverticulitis, Hx Gastroesophageal Reflux Disease Musculoskeltal Medical History: 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 Denies recent illness. EENT: Denies eye, ear, throat, or mouth pain or symptoms. Denies nasal or sinus congestion. CARDIOVASCULAR: As pressure which has since resolved. RESPIRATORY: Denies cough, cold, or chest congestion. Denies shortness of breath, difficulty breathing, or wheezing. GASTROINTESTINAL: Denies abdominal pain. Vomiting and diarrhea. GENITOURINARY: Denies difficulty urinating, painful urination, burning, frequency, or blood in urine. MUSCULOSKELETAL: Denies neck or back pain or joint pain or swelling. SKIN: Denies rash or skin lesions. NEUROLOGICAL: Denies altered mental status or loss of consciousness. Denies headache. Denies weakness or paralysis or loss of use of either side. Denies problems with gait or speech. Denies sensory or motor loss. ALL OTHER SYSTEMS REVIEWED AND NEGATIVE. Physical Exam - Vital signs Vitals: Temp Pulse Resp BP Pulse Ox 97.6 F 68 18 162/88 H 98 09/25/17 02:40 09/25/17 02:40 09/25/17 02:40 09/25/17 02:40 09/25/17 02:40 - Notes Notes: General Appearance: Well nourished, alert, cooperative, no acute distress, no obvious discomfort. Vitals: reviewed, See vital signs table. Head: no swelling or tenderness to the head Eyes: PERRL, EOMI, Conjuctiva clear Mouth: No decreasd moisture Throat: No tonsillar inflammation, No airway obstruction, No lymphadenopathy Lungs: No wheezing, No rales, No rhonci, No accessory muscle use, good air exchange bilaterally. Heart: Normal rate, Regular rythm, No murmur, no rub Abdomen: Normal BS, soft, No rigidity, No reducible abdominal tenderness to palpation, No guarding, no rebound, Extremities: strength 5/5 in all extremities, good pulses in all extremities, no swelling or tenderness in the extremities, no edema. Skin: warm, dry, appropriate color, no rash Neuro: speech clear, oriented x 3, normal affect, responds appropriately to questions. Course - Re-evaluation Re-evalutation: 09/25/17 06:03 After the Zofran patient is feeling much improved. Her nausea is gone. She has been drinking water without difficulty. She has no abdominal pain to palpation on repeat exam. She has no continued chest pain. Troponin is negative. Her EKG is normal-appearing. She had a recent negative cardiac catheterization just 6 months ago showing that she most likely is not having an [place] causing her symptoms. Her symptoms symptoms started after starting spironolactone. This can cause vomiting diarrhea. I will have her hold this medication and call Dr. Matthews on Tuesday to inform them that we held this medication see if he wants to do something different for pressure control. Informed her that if she has recurrent high blood pressure than she should return to ER. Currently she is normotensive with a blood pressure of 126/82. She says she feels well and wants to go home. I informed her that she needs to have a low threshold to return to ER if she has recurrent abdominal pain, recurrent vomiting, blood in her stool, fevers, recurrent chest pain, or she feels unwell in any way. Patient agrees with plan and will be discharged home. Dictation of this chart was performed using voice recognition software; therefore, there may be some unintended grammatical errors. - Vital Signs Vital signs: Temp Pulse Resp BP Pulse Ox 97.6 F 68 17 126/57 H 98 09/25/17 02:40 09/25/17 02:40 09/25/17 05:34 09/25/17 05:34 09/25/17 05:34 - Laboratory Result Diagrams: 09/25/17 04:44 09/25/17 04:44 Laboratory results interpreted by me: 09/25/17 09/25/17 04:44 04:44 WBC 13.6 H RDW 14.2 H Seg Neutrophils % 87.6 H Lymphocytes % 5.5 L Absolute Neutrophils 11.9 H BUN 26 H Glucose 170 H - EKG Interpretation by Me Additional EKG results interpreted by me: 09/25/17 03:21 EKG is reviewed and interpreted by me. EKG shows normal sinus rhythm with a rate of [address] segment elevation or depression. No ischemic T-wave inversions. FL interval, QRS duration, QTc intervals are within normal range. Old EKG for comparison is from September 04, 2017. Discharge - Discharge Clinical Impression: Vomiting and diarrhea, Chest pain Condition: Good Disposition: HOME, SELF-CARE Additional Instructions: Please drink clear liquids throughout the day and than slowly progress to eating bland foods. Please avoid taking the spironolactone and call Dr. Matthews on Tuesday to inform him that we held this medication. I suspect this is most likely what is causing your vomiting and diarrhea. Your blood work shows that your heart enzymes are normal. White blood cell count was just minimally elevated. Your electrolytes were all normal. I feel you are safe to be discharged home. Please have a low threshold to return to the ER if you have any recurrent abdominal pain, recurrent chest pain, recurrent vomiting, or if you feel unwell. Prescriptions: Ondansetron [Zofran Odt 4 mg Tablet] 1 tab PO Q4H PRN #10 tab.rapdis PRN Reason: For Nausea/Vomiting
--- NOTE | 2017-09-25 03:56 | RADIOLOGY REPORT (SQ) ---
EXAM DESCRIPTION: CHEST SINGLE VIEW CLINICAL HISTORY: 86 years, Female, chest pressure COMPARISON: September 04, 2017 LIMITATIONS: None. FINDINGS: Prominent interstitium, clear parenchyma, normal cardiac silhouette, atherosclerosis, and intact bony thorax. IMPRESSION: No acute cardiopulmonary findings. 2011 [employer]- All Rights Reserved
[2017-09-25 05:00] LABS: ABSOLUTE EOSINOPHILS # (AUTO) 0.1 10^3/uL (0.0-0.6); ABSOLUTE LYMPHOCYTES (AUTO) 0.7 10^3/uL (0.5-4.7); ABSOLUTE MONOCYTES (AUTO) 0.9 10^3/uL (0.1-1.4); ABSOLUTE NEUT (AUTO) 11.9 10^3/uL (1.7-8.2); BASOPHILS % (AUTO) 0.2 % (0-2); EOSINOPHILS % (AUTO) 0.4 % (0-6); HEMATOCRIT 38.6 % (36.0-47.0); HEMOGLOBIN 12.5 g/dL (12.0-15.5); HGB HCT DIFFERENCE -1.1; LYMPHOCYTES % (AUTO) 5.5 % (13-45); MEAN CORPUSCULAR HEMOGLOBIN 27.7 pg (27.0-33.4); MEAN CORPUSCULAR HGB CONC 32.4 g/dL (32.0-36.0); MEAN CORPUSCULAR VOLUME 85 fl (80-97); MONOCYTES % (AUTO) 6.3 % (3-13); RED BLOOD COUNT 4.53 10^6/uL (3.72-5.28); RED CELL DISTRIBUTION WIDTH 14.2 % (11.5-14.0); SEGMENTED NEUTROPHILS % (AUTO) 87.6 % (42-78); WHITE BLOOD COUNT 13.6 10^3/uL (4.0-10.5)
[2017-09-25 05:34] LABS: ALANINE AMINOTRANSFERASE 22 U/L (9-52); ALBUMIN 4.2 g/dL (3.5-5.0); ALKALINE PHOSPHATASE 80 U/L (38-126); ANION GAP 14 (5-19); ASPARTATE AMINO TRANSFERASE 18 U/L (14-36); BILIRUBIN,DIRECT 0.2 mg/dL (0.0-0.4); BILIRUBIN,TOTAL 0.4 mg/dL (0.2-1.3); BLOOD UREA NITROGEN 26 mg/dL (7-20); CALCIUM 9.7 mg/dL (8.4-10.2); CARBON DIOXIDE 25 mmol/L (22-30); CHLORIDE 106 mmol/L (98-107); CREATININE RESULT 0.82 mg/dL (0.52-1.25); GLUCOSE 170 mg/dL (75-110); LIPASE 212.9 U/L (23-300); POTASSIUM 4.4 mmol/L (3.6-5.0); SODIUM 144.8 mmol/L (137-145); TOTAL PROTEIN 6.7 g/dL (6.3-8.2)
[2017-09-25] MEDS ORDERED: ONDANSETRON 4 MG TAB.RAPDIS PO ONE (06:01)
[2017-09-25] MEDS ORDERED: ONDANSETRON ODT 4 MG TAB (6 TAB/DSPK) PO PRN (06:02)
[2017-09-25 06:31] VITALS: BP 96/79
--- NOTE | 2017-09-25 08:42 | EKG REPORT ---
SEVERITY:- BORDERLINE ECG - SINUS RHYTHM LEFT VENTRICULAR HYPERTROPHY BORDERLINE PROLONGED QT INTERVAL : Confirmed by: Vahid Dennis MD 25-Sep-2017 08:41:16
== END 2017-09-25 06:15 | disposition home or self-care (01) ==
LOC: ER 02:38
DX: R11.2 Nausea with vomiting, unspecified (principal); R19.7 Diarrhea, unspecified; R07.9 Chest pain, unspecified; E11.9 Type 2 diabetes mellitus without complications; I10 Essential (primary) hypertension; Z79.899 Other long term (current) drug therapy
CPT/HCPCS: 93005; 99284; 96374; 36415; 83690; 85025; 80053; 84484; 71010; 93010; J2405; J7040; A9270

== ENCOUNTER → 2017-11-14 | Outpatient (CLI) | payer MEDICARE, OTHER ==
[2017-11-14 12:15] LABS: ABSOLUTE BASOPHILS # (AUTO) 0.1 10^3/uL (0.0-0.2); ABSOLUTE EOSINOPHILS # (AUTO) 0.2 10^3/uL (0.0-0.6); ABSOLUTE LYMPHOCYTES (AUTO) 1.6 10^3/uL (0.5-4.7); ABSOLUTE MONOCYTES (AUTO) 0.6 10^3/uL (0.1-1.4); ABSOLUTE NEUT (AUTO) 3.9 10^3/uL (1.7-8.2); BASOPHILS % (AUTO) 0.9 % (0-2); EOSINOPHILS % (AUTO) 3.4 % (0-6); HEMATOCRIT 33.8 % (36.0-47.0); LYMPHOCYTES % (AUTO) 24.9 % (13-45); MEAN CORPUSCULAR HEMOGLOBIN 27.4 pg (27.0-33.4); MEAN CORPUSCULAR HGB CONC 32.5 g/dL (32.0-36.0); MEAN CORPUSCULAR VOLUME 84 fl (80-97); MONOCYTES % (AUTO) 9.3 % (3-13); PLATELET COUNT 275 10^3/uL (150-450); RED BLOOD COUNT 4.02 10^6/uL (3.72-5.28); SEGMENTED NEUTROPHILS % (AUTO) 61.5 % (42-78); TOTAL CELLS COUNTED % (AUTO) 100 %; WHITE BLOOD COUNT 6.3 10^3/uL (4.0-10.5)
[2017-11-14 12:28] LABS: ALANINE AMINOTRANSFERASE 18 U/L (9-52); ALBUMIN 4.5 g/dL (3.5-5.0); ALKALINE PHOSPHATASE 74 U/L (38-126); ANION GAP 9 (5-19); ASPARTATE AMINO TRANSFERASE 21 U/L (14-36); BILIRUBIN,DIRECT 0.5 mg/dL (0.0-0.4); BILIRUBIN,TOTAL 0.5 mg/dL (0.2-1.3); BLOOD UREA NITROGEN 23 mg/dL (7-20); CARBON DIOXIDE 28 mmol/L (22-30); CHLORIDE 105 mmol/L (98-107); GLUCOSE 125 mg/dL (75-110); IRON(TIBC) 42.4 ug/dL (37-170); POTASSIUM 4.9 mmol/L (3.6-5.0); SODIUM 142.4 mmol/L (137-145); TOTAL PROTEIN 7.2 g/dL (6.3-8.2)
[2017-11-15 12:38] LABS: CREATININE URINE 207.7 mg/dL (Not Estab.); MICROALBUMIN URINE 41.7 ug/mL (Not Estab.)
== END ==
LOC: OD 10:56
PROVIDERS: ATTEND Family Medicine
DX: D50.9 Iron deficiency anemia, unspecified (principal); E11.65 Type 2 diabetes mellitus with hyperglycemia; Z79.899 Other long term (current) drug therapy
CPT/HCPCS: 36415; 80053; 82043; 82570; 82728; 83036; 83540; 83550; 85025

== ENCOUNTER → 2017-12-26 | Outpatient (CLI) | payer MEDICARE, OTHER ==
[2017-12-26 09:51] LABS: APPEARANCE,URINE SLIGHTLY-CLOUDY; BILIRUBIN,URINE NEGATIVE (NEGATIVE); COLOR,URINE YELLOW; GLUCOSE, URINE NEGATIVE (NEGATIVE); KETONES,URINE NEGATIVE (NEGATIVE); LEUKOCYTE ESTERASE,URINE LARGE (NEGATIVE); NITRITE,URINE NEGATIVE (NEGATIVE); PROTEIN,URINE NEGATIVE (NEGATIVE); URINE SPECIFIC GRAVITY 1.019; UROBILINOGEN,URINE NEGATIVE mg/dL (<2.0)
[2017-12-26 10:02] LABS: ABSOLUTE EOSINOPHILS # (AUTO) 0.2 10^3/uL (0.0-0.6); ABSOLUTE LYMPHOCYTES (AUTO) 1.2 10^3/uL (0.5-4.7); ABSOLUTE MONOCYTES (AUTO) 0.5 10^3/uL (0.1-1.4); ABSOLUTE NEUT (AUTO) 3.5 10^3/uL (1.7-8.2); BASOPHILS % (AUTO) 0.5 % (0-2); EOSINOPHILS % (AUTO) 3.1 % (0-6); HEMATOCRIT 35.2 % (36.0-47.0); HEMOGLOBIN 11.5 g/dL (12.0-15.5); LYMPHOCYTES % (AUTO) 22.1 % (13-45); MEAN CORPUSCULAR HEMOGLOBIN 28.7 pg (27.0-33.4); MEAN CORPUSCULAR HGB CONC 32.6 g/dL (32.0-36.0); MEAN CORPUSCULAR VOLUME 88 fl (80-97); MONOCYTES % (AUTO) 9.7 % (3-13); PLATELET COUNT 237 10^3/uL (150-450); RED CELL DISTRIBUTION WIDTH 16.1 % (11.5-14.0); SEGMENTED NEUTROPHILS % (AUTO) 64.6 % (42-78); TOTAL CELLS COUNTED % (AUTO) 100 %; WHITE BLOOD COUNT 5.4 10^3/uL (4.0-10.5)
[2017-12-26 10:22] LABS: IRON(TIBC) 31.6 ug/dL (37-170)
== END ==
LOC: OD 09:15
PROVIDERS: ATTEND Family Medicine
DX: D50.9 Iron deficiency anemia, unspecified (principal); Z79.01 Long term (current) use of anticoagulants
CPT/HCPCS: 36415; 81001; 83540; 83550; 85025

== ENCOUNTER → 2018-02-09 | Outpatient (CLI) | payer MEDICARE, OTHER ==
[2018-02-10 13:01] LABS: ANION GAP 14 (5-19); BLOOD UREA NITROGEN 19 mg/dL (7-20); CALCIUM 9.5 mg/dL (8.4-10.2); CARBON DIOXIDE 27 mmol/L (22-30); CHLORIDE 106 mmol/L (98-107); GLUCOSE 117 mg/dL (75-110); POTASSIUM 4.7 mmol/L (3.6-5.0); SODIUM 147.1 mmol/L (137-145)
== END ==
LOC: OD 11:12
PROVIDERS: ATTEND Family Medicine
DX: E11.65 Type 2 diabetes mellitus with hyperglycemia (principal)
CPT/HCPCS: 36415; 80048; 83036

== ENCOUNTER → 2018-05-11 | Outpatient (CLI) | payer MEDICARE, OTHER ==
[2018-05-11 09:27] LABS: ABSOLUTE EOSINOPHILS # (AUTO) 0.1 10^3/uL (0.0-0.6); ABSOLUTE LYMPHOCYTES (AUTO) 1.2 10^3/uL (0.5-4.7); ABSOLUTE MONOCYTES (AUTO) 0.5 10^3/uL (0.1-1.4); ABSOLUTE NEUT (AUTO) 3.1 10^3/uL (1.7-8.2); BASOPHILS % (AUTO) 0.4 % (0-2); HEMATOCRIT 32.3 % (36.0-47.0); HEMOGLOBIN 10.7 g/dL (12.0-15.5); LYMPHOCYTES % (AUTO) 24.6 % (13-45); MEAN CORPUSCULAR HEMOGLOBIN 29.3 pg (27.0-33.4); MEAN CORPUSCULAR HGB CONC 33.2 g/dL (32.0-36.0); MEAN CORPUSCULAR VOLUME 88 fl (80-97); MONOCYTES % (AUTO) 10.1 % (3-13); PLATELET COUNT 244 10^3/uL (150-450); RED BLOOD COUNT 3.65 10^6/uL (3.72-5.28); RED CELL DISTRIBUTION WIDTH 15.7 % (11.5-14.0); SEGMENTED NEUTROPHILS % (AUTO) 62.9 % (42-78); TOTAL CELLS COUNTED % (AUTO) 100 %; WHITE BLOOD COUNT 4.9 10^3/uL (4.0-10.5)
[2018-05-11 09:54] LABS: ALANINE AMINOTRANSFERASE 22 U/L (9-52); ALBUMIN 4.2 g/dL (3.5-5.0); ALKALINE PHOSPHATASE 70 U/L (38-126); ANION GAP 14 (5-19); ASPARTATE AMINO TRANSFERASE 14 U/L (14-36); BILIRUBIN,DIRECT 0.2 mg/dL (0.0-0.4); BILIRUBIN,TOTAL 0.2 mg/dL (0.2-1.3); BLOOD UREA NITROGEN 20 mg/dL (7-20); CALCIUM 9.4 mg/dL (8.4-10.2); CARBON DIOXIDE 25 mmol/L (22-30); CHLORIDE 106 mmol/L (98-107); CHOLESTEROL 125.74 mg/dL (0-200); GLUCOSE 194 mg/dL (75-110); IRON(TIBC) 31.2 ug/dL (37-170); POTASSIUM 4.4 mmol/L (3.6-5.0); SODIUM 144.7 mmol/L (137-145); TOTAL PROTEIN 6.8 g/dL (6.3-8.2); TRIGLYCERIDES 138 mg/dL (<150)
[2018-05-11 10:05] LABS: DIRECT LDL 65 mg/dL (<100)
[2018-05-12 13:38] LABS: CREATININE URINE 130.6 mg/dL (Not Estab.); MICROALBUMIN URINE 72.2 ug/mL (Not Estab.)
== END ==
LOC: OD 08:41
PROVIDERS: ATTEND Family Medicine
DX: D50.9 Iron deficiency anemia, unspecified (principal); E11.9 Type 2 diabetes mellitus without complications; E78.5 Hyperlipidemia, unspecified; E53.9 Vitamin B deficiency, unspecified; E55.9 Vitamin D deficiency, unspecified; Z79.899 Other long term (current) drug therapy
CPT/HCPCS: 36415; 80053; 80061; 82043; 82306; 82570; 82607; 83036; 83540; 83550; 85025

== ENCOUNTER 2018-06-13 08:32 | Outpatient (CLI) | payer MEDICARE ==
[~2018-06-13 08:32] MED LIST: FERUMOXYTOL (NON-ESRD) 510 MG/NS 100 ML IV PRN; NORMAL SALINE 250 ML IV PRN
[2018-06-13 09:20] VITALS: BP 125/61
== END 2018-06-13 10:25 | disposition home or self-care (01) ==
LOC: II 08:32 → 5TH 09:10 → II 10:25
PROVIDERS: ATTEND Internal Medicine
PROC: 3E033GC Introduction of Other Therapeutic Substance into Peripheral Vein, Percutaneous Approach (ICD-10-PCS; principal; 2018-06-13)
DX: D50.8 Other iron deficiency anemias (principal); K90.9 Intestinal malabsorption, unspecified
CPT/HCPCS: 96365; Q0138

== ENCOUNTER 2018-06-27 08:34 | Outpatient (CLI) | payer MEDICARE ==
[~2018-06-27 08:34] MED LIST changes: +FERUMOXYTOL (ESRD) 510 MG/NS 100 ML IV PRN; -FERUMOXYTOL (NON-ESRD) 510 MG/NS 100 ML IV PRN; -NORMAL SALINE 250 ML IV PRN
[2018-06-27] MEDS ORDERED: FERUMOXYTOL (NON-ESRD) 510 MG/NS 100 ML IV PRN ×2 (08:57)
[2018-06-27 09:42] VITALS: BP 118/60
== END 2018-06-27 10:27 | disposition home or self-care (01) ==
LOC: II 08:34 → 5TH 08:38 → II 10:27
PROVIDERS: ATTEND Internal Medicine
PROC: 3E033GC Introduction of Other Therapeutic Substance into Peripheral Vein, Percutaneous Approach (ICD-10-PCS; principal; 2018-06-27)
DX: D50.8 Other iron deficiency anemias (principal); K90.9 Intestinal malabsorption, unspecified
CPT/HCPCS: 96365; Q0138; 96367; Q0139

== ENCOUNTER → 2018-08-14 | Outpatient (CLI) | payer MEDICARE, OTHER ==
[2018-08-14 13:57] LABS: APPEARANCE,URINE SLIGHTLY-CLOUDY; BILIRUBIN,URINE NEGATIVE (NEGATIVE); COLOR,URINE YELLOW; GLUCOSE, URINE NEGATIVE (NEGATIVE); KETONES,URINE NEGATIVE (NEGATIVE); LEUKOCYTE ESTERASE,URINE SMALL (NEGATIVE); NITRITE,URINE NEGATIVE (NEGATIVE); PROTEIN,URINE NEGATIVE (NEGATIVE)
[2018-08-14 14:01] LABS: ABSOLUTE EOSINOPHILS # (AUTO) 0.1 10^3/uL (0.0-0.6); ABSOLUTE LYMPHOCYTES (AUTO) 1.4 10^3/uL (0.5-4.7); ABSOLUTE MONOCYTES (AUTO) 0.7 10^3/uL (0.1-1.4); ABSOLUTE NEUT (AUTO) 4.4 10^3/uL (1.7-8.2); BASOPHILS % (AUTO) 0.3 % (0-2); EOSINOPHILS % (AUTO) 1.6 % (0-6); HEMOGLOBIN 9.1 g/dL (12.0-15.5); LYMPHOCYTES % (AUTO) 21.2 % (13-45); MEAN CORPUSCULAR HEMOGLOBIN 26.7 pg (27.0-33.4); MEAN CORPUSCULAR HGB CONC 32.6 g/dL (32.0-36.0); MEAN CORPUSCULAR VOLUME 82 fl (80-97); MONOCYTES % (AUTO) 11.2 % (3-13); PLATELET COUNT 255 10^3/uL (150-450); RED BLOOD COUNT 3.42 10^6/uL (3.72-5.28); RED CELL DISTRIBUTION WIDTH 16.9 % (11.5-14.0); SEGMENTED NEUTROPHILS % (AUTO) 65.7 % (42-78); TOTAL CELLS COUNTED % (AUTO) 100 %; WHITE BLOOD COUNT 6.7 10^3/uL (4.0-10.5)
[2018-08-14 14:15] LABS: ANION GAP 13 (5-19); BLOOD UREA NITROGEN 18 mg/dL (7-20); CALCIUM 9.2 mg/dL (8.4-10.2); CARBON DIOXIDE 27 mmol/L (22-30); CHLORIDE 103 mmol/L (98-107); GLUCOSE 129 mg/dL (75-110); POTASSIUM 4.5 mmol/L (3.6-5.0); SODIUM 142.5 mmol/L (137-145)
[2018-08-15 12:45] LABS: IRON(TIBC) < 10.1 ug/dL (37-170)
== END ==
LOC: OD 12:54
PROVIDERS: ATTEND Family Medicine
DX: E11.9 Type 2 diabetes mellitus without complications (principal); D50.8 Other iron deficiency anemias; K90.9 Intestinal malabsorption, unspecified; Z79.899 Other long term (current) drug therapy
CPT/HCPCS: 36415; 80048; 81001; 82728; 83036; 83540; 83550; 85025

== ENCOUNTER 2018-12-19 15:00 | Day surgery (SDC) | payer MEDICARE, OTHER ==
[2018-12-19] MEDS ORDERED: FENTANYL CITRATE INJ/PF 100 MCG/2 ML AMPUL ONE (16:23)
[2018-12-19] MEDS ORDERED: EPINEPHRINE INJ 1 MG/10 ML DISP.SYRIN ONE (16:23)
[2018-12-19] MEDS ORDERED: DIPHENHYDRAMINE HCL 50 MG/ML VIAL ONE (16:23)
[2018-12-19] MEDS ORDERED: FLUMAZENIL INJ 0.5 MG/5 ML VIAL ONE (16:23)
[2018-12-19] MEDS ORDERED: MIDAZOLAM 2 MG/2 ML INJ ONE (16:23)
[2018-12-19] MEDS ORDERED: ONDANSETRON HCL INJ/PF 4 MG/2 ML SDV ONE (16:23)
[2018-12-19] MEDS ORDERED: NALOXONE HCL INJ/PF 0.4 MG/1 ML SDV ONE (16:23)
[2018-12-19] MEDS ORDERED: GLUCAGON,HUMAN RECOMB 1 MG INJ ONE (16:24)
--- NOTE | 2018-12-19 17:09 | Operative Report ---
Operative Report DATE OF SURGERY: 12/19/18 Operative Report: Pre-op diagnosis: Iron deficiency anemia, Gastric antral vascular ectasia Post-op diagnosis: 1. Shadi erosions 2. GE junction lesion 3. Antral ectasia 4. Hiatal hernia Surgery: Esophagogastroduodenoscopy with biopsy and argon plasma coagulation Medications: Versed 2mg Fentanyl 100mcg IV push Tissue removed: Biopsy of the gastric cardia for pathology Procedure: After informed consent obtained from patient, the throat was sprayed with Hurricane and conscious sedation was achieved. The upper endoscope was inserted into the esophagus under direct vision and advanced into the stomach. The duodenum was entered and examined to the second part. Endoscope was then slowly pulled out of the patient as the mucosa was examined into details. Patient tolerated procedure well. Findings Esophagus: The Z line was at 34 cm with a normal esophagus. Just below the Z line was noted a 15 mm area of erosion, slight mucosal elevation, friability and exudate. Patient has a 2-3 cm hiatal hernia with a few erosions noted at the mouth of the hernia. Antrum: Scattered erythematous lesions in a linear pattern consistent with vascular ectasia. This was cauterized using the APC probe Body: Normal Fundus: Normal Duodenum first part: Normal Duodenum second part: Normal Plan: Await pathology. Increase Nexium to 20 mg twice daily. Repeat EGD in 4-6 weeks OPERATION: .
[2018-12-19 18:19] VITALS: BP 136/74
== END 2018-12-19 18:12 | disposition home or self-care (01) ==
LOC: END 15:00
PROVIDERS: ATTEND Internal Medicine Gastroenterology
DX: K31.819 Angiodysplasia of stomach and duodenum without bleeding (principal); K44.9 Diaphragmatic hernia without obstruction or gangrene; K25.9 Gastric ulcer, unspecified as acute or chronic, without hemorrhage or perforation; D50.0 Iron deficiency anemia secondary to blood loss (chronic); I48.91 Unspecified atrial fibrillation; E11.9 Type 2 diabetes mellitus without complications; E78.00 Pure hypercholesterolemia, unspecified; Z79.01 Long term (current) use of anticoagulants; Z79.899 Other long term (current) drug therapy; Z79.51 Long term (current) use of inhaled steroids; Z79.84 Long term (current) use of oral hypoglycemic drugs; K31.9 Disease of stomach and duodenum, unspecified
CPT/HCPCS: 43270; 43239; 82962; 88342 ×2; 88305 ×2; 88312 ×2; J2250; J3010; J0171; J1200; J1610; J2310; J2405; J3490

== ENCOUNTER 2019-01-30 14:50 | Day surgery (SDC) | payer MEDICARE, OTHER ==
[2019-01-30] MEDS ORDERED: ONDANSETRON HCL INJ/PF 4 MG/2 ML SDV ONE (15:43)
[2019-01-30] MEDS ORDERED: FENTANYL CITRATE INJ/PF 100 MCG/2 ML AMPUL ONE (15:43)
[2019-01-30] MEDS ORDERED: DIPHENHYDRAMINE HCL 50 MG/ML VIAL ONE (15:43)
[2019-01-30] MEDS ORDERED: MIDAZOLAM 2 MG/2 ML INJ ONE (15:44)
[2019-01-30] MEDS ORDERED: NALOXONE HCL INJ/PF 0.4 MG/1 ML SDV ONE (15:44)
[2019-01-30] MEDS ORDERED: FLUMAZENIL INJ 0.5 MG/5 ML VIAL ONE (15:44)
[2019-01-30] MEDS ORDERED: GLUCAGON,HUMAN RECOMB 1 MG INJ ONE (15:44)
[2019-01-30] MEDS ORDERED: EPINEPHRINE INJ 1 MG/10 ML DISP.SYRIN ONE (15:44)
--- NOTE | 2019-01-30 16:50 | Operative Report ---
Operative Report DATE OF SURGERY: 01/30/19 Operative Report: Pre-op diagnosis: History of GI bleed and gastric antral vascular ectasia Post-op diagnosis: Antral vascular ectasia Surgery: Esophagogastroduodenoscopy with radiofrequency ablation Medications: Versed 2mg Fentanyl 50mcg IV push Tissue removed: None Procedure: After informed consent obtained from patient, the throat was sprayed with Hurricane and conscious sedation was achieved. The upper endoscope was inserted into the esophagus under direct vision and advanced into the stomach. The duodenum was entered and examined to the second part. Endoscope was then slowly pulled out of the patient as the mucosa was examined into details. Patient tolerated procedure well. Findings Esophagus: Normal. A 2 to 3 cm hernia was identified with no erosions Antrum: Multiple ectasia were noted in the distal antrum and this was cauterized using the through the scope ablation catheter Body: Normal Fundus: Normal Duodenum first part: Normal Duodenum second part: Normal Plan: Increase Nexium to twice a day for the next couple of weeks and hold Eliquis for 3 days OPERATION: .
[2019-01-30 17:56] VITALS: BP 121/64
== END 2019-01-30 17:30 | disposition home or self-care (01) ==
LOC: END 14:50
PROVIDERS: ATTEND Internal Medicine Gastroenterology
DX: K31.819 Angiodysplasia of stomach and duodenum without bleeding (principal); K44.9 Diaphragmatic hernia without obstruction or gangrene; D50.0 Iron deficiency anemia secondary to blood loss (chronic); K21.0 Gastro-esophageal reflux disease with esophagitis; K29.50 Unspecified chronic gastritis without bleeding; E11.9 Type 2 diabetes mellitus without complications; I10 Essential (primary) hypertension; E78.00 Pure hypercholesterolemia, unspecified; I48.91 Unspecified atrial fibrillation; K58.9 Irritable bowel syndrome, unspecified; K92.1 Melena; Z79.01 Long term (current) use of anticoagulants; Z79.51 Long term (current) use of inhaled steroids; Z79.899 Other long term (current) drug therapy; Z79.84 Long term (current) use of oral hypoglycemic drugs; Z86.010 Personal history of colon polyps
CPT/HCPCS: 43270; 82962; J2250; J3010; J0171; J1200; J1610; J2310; J2405; J3490

== ENCOUNTER → 2019-10-04 | Outpatient (CLI) | payer MEDICARE, OTHER ==
--- NOTE | 2019-10-04 09:50 | WOMENS IMAGING REPORT ---
EXAM DESCRIPTION: U/S ABDOMEN LIMITED COMPLETED DATE/TIME: 10/04/2019 8:16 am REASON FOR STUDY: R12 HEART BURN R10.13 ABDOMINAL PAIN R10.13 EPIGASTRIC PAIN COMPARISON: None. TECHNIQUE: Dynamic and static grayscale images acquired of the abdomen and recorded on PACS. Additio nal selected color Doppler and spectral images recorded. LIMITATIONS: Limited visualization. Poor acoustical window FINDINGS: PANCREAS: Limited visualization. no masses seen LIVER: Normal size Mild fatty infiltration. No focal masses. LIVER VASCULATURE: Normal directional flow of the main portal vein and hepatic veins. GALLBLADDER: No stones. Normal wall thickness. No pericholecystic fluid. ULTRASOUND-DETECTED BETANCOURT'S SIGN: Negative. INTRAHEPATIC DUCTS AND COMMON DUCT: CBD and intrahepatic ducts normal caliber. No filling defects. INFERIOR VENA CAVA: Normal flow. AORTA: No aneurysm. RIGHT KIDNEY: Normal size. 10 mm midpole cyst. No solid or suspicious masses. No hydronephrosi s. No calcifications. PERITONEAL AND RIGHT PLEURAL SPACE: No ascites or effusions. OTHER: No other significant findings. IMPRESSION: Fatty liver. No acute findings. TECHNICAL DOCUMENTATION: JOB ID: [id number] [employer]- All Rights Reserved Reading location - IP/workstation name: [email or web address]
== END ==
LOC: WI 07:40
PROVIDERS: ATTEND Internal Medicine Gastroenterology
DX: R10.13 Epigastric pain (principal)
CPT/HCPCS: 76705

== ENCOUNTER 2020-08-07 11:08 | Observation (INO) | payer MEDICARE, OTHER ==
[2020-08-07 12:19] LABS: ABSOLUTE EOSINOPHILS # (AUTO) 0.1 10^3/uL (0.0-0.6); ABSOLUTE LYMPHOCYTES (AUTO) 1.3 10^3/uL (0.5-4.7); ABSOLUTE MONOCYTES (AUTO) 0.5 10^3/uL (0.1-1.4); ABSOLUTE NEUT (AUTO) 3.7 10^3/uL (1.7-8.2); BASOPHILS % (AUTO) 0.6 % (0-2); EOSINOPHILS % (AUTO) 1.9 % (0-6); HEMATOCRIT 44.5 % (36.0-47.0); HEMOGLOBIN 15.4 g/dL (12.0-15.5); LYMPHOCYTES % (AUTO) 23.3 % (13-45); MEAN CORPUSCULAR HEMOGLOBIN 31.1 pg (27.0-33.4); MEAN CORPUSCULAR HGB CONC 34.5 g/dL (32.0-36.0); MEAN CORPUSCULAR VOLUME 90 fl (80-97); PLATELET COUNT 220 10^3/uL (150-450); RED BLOOD COUNT 4.94 10^6/uL (3.72-5.28); RED CELL DISTRIBUTION WIDTH 13.1 % (11.5-14.0); SEGMENTED NEUTROPHILS % (AUTO) 65.2 % (42-78); TOTAL CELLS COUNTED % (AUTO) 100 %; WHITE BLOOD COUNT 5.7 10^3/uL (4.0-10.5)
[2020-08-07 12:38] LABS: ALBUMIN 4.6 g/dL (3.5-5.0); ALKALINE PHOSPHATASE 92 U/L (38-126); ANION GAP 11 (5-19); ASPARTATE AMINO TRANSFERASE 20 U/L (14-36); BILIRUBIN,DIRECT 0.1 mg/dL (0.0-0.4); BILIRUBIN,TOTAL 0.4 mg/dL (0.2-1.3); BLOOD UREA NITROGEN 20 mg/dL (7-20); CALCIUM 9.6 mg/dL (8.4-10.2); CARBON DIOXIDE 26 mmol/L (22-30); CHLORIDE 105 mmol/L (98-107); CREATINE KINASE 49 U/L (30-135); GLUCOSE 186 mg/dL (75-110); POTASSIUM 4.3 mmol/L (3.6-5.0); TOTAL PROTEIN 7.5 g/dL (6.3-8.2)
[2020-08-07 12:50] LABS: CREATINE KINASE MB 0.69 ng/mL (<4.55); TROPONIN I < 0.012 ng/mL
--- NOTE | 2020-08-07 12:53 | RADIOLOGY REPORT (SQ) ---
EXAM DESCRIPTION: CHEST SINGLE VIEW IMAGES COMPLETED DATE/TIME: 08/07/2020 12:16 pm REASON FOR STUDY: bed 15 chest pain COMPARISON: 06/06/2018 EXAM PARAMETERS: NUMBER OF VIEWS: One view. TECHNIQUE: Single frontal radiographic view of the chest acquired. RADIATION DOSE: NA LIMITATIONS: None. FINDINGS: LUNGS AND PLEURA: No opacities, masses or pneumothorax. No pleural effusion. MEDIASTINUM AND HILAR STRUCTURES: No masses. Contour normal. HEART AND VASCULAR STRUCTURES: Heart normal in size. Normal vasculature. BONES: No acute findings. HARDWARE: None in the chest. OTHER: No other significant finding. IMPRESSION: NO ACUTE RADIOGRAPHIC FINDING IN THE CHEST. TECHNICAL DOCUMENTATION: JOB ID: [id number] 2010 [employer]- All Rights Reserved Reading location - IP/workstation name: [email or web address]
[2020-08-07] MEDS ORDERED: ASPIRIN 325 MG TABLET PO ONE (15:11)
--- NOTE | 2020-08-07 15:48 | ER Document Report ---
ED Cardiac - General Chief Complaint: Chest Pressure Stated Complaint: CHEST PAIN, ARM PAIN, BACK PAIN Time Seen by Provider: 08/07/20 13:14 Primary Care Provider: KULWANT GIL MD [Primary Care Provider] - Follow up as needed Mode of Arrival: Ambulatory Information source: Patient TRAVEL OUTSIDE OF THE [place] IN LAST 30 DAYS: No - HPI Notes: Patient comes in with chest pain. She states she was driving her car today when she felt a sudden onset of left arm pain and anterior chest pain. It radiated across her chest. Nothing made it better or worse. It appears it lasted approximately 30 minutes. Some mild shortness of breath was had no significant nausea. No recent cough cold or congestion. She is pain-free now and co mfortable. Her last heart catheterization was approximately 3 years ago in 2017. At that time she had a 50% lesion of the LAD but no stents were placed. She also has a history of intermittent atrial fibrillation and has a watchman device. She has been discontinued from her anticoagulants. - Related Data Allergies/Adverse Reactions: No Known Allergies Allergy (Verified 08/07/20 13:18) Past Medical History - General Information source: Patient - Social History Smoking Status: Never Smoker Frequency of alcohol use: None Drug Abuse: None Family History: Reviewed & Not Pertinent, CAD, DM - Past Medical History Cardiac Medical History: Reports: Hx Atrial Fibrillation, Hx Coronary Artery Disease - on meds, Hx Hypercholesterolemia, Hx Hypertension Denies: Hx Heart Attack Pulmonary Medical History: Denies: Hx Asthma, Hx Bronchitis, Hx COPD, Hx Pneumonia Neurological Medical History: Denies: Hx Cerebrovascular Accident, Hx Seizures Endocrine Medical History: Reports: Hx Diabetes Mellitus Type 1, Hx Diabetes Mellitus Type 2 Renal/ Medical History: Denies: Hx Peritoneal Dialysis GI Medical History: Reports: Hx Diverticulitis, Hx Gastroesophageal Reflux Disease Musculoskeletal Medical History: 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 Denies: Hx Hysterectomy, Hx Mastectomy, Hx Open Heart Surgery, Hx Pacemaker - Immunizations Hx Diphtheria, Pertussis, Tetanus Vaccination: No Hx Pneumococcal Vaccination: 08/03/15 Review of Systems - Review of Systems Constitutional: denies: Chills, Fever Cardiovascular: Chest pain. denies: Palpitations Respiratory: Short of breath. denies: Cough -: Yes All other systems reviewed and negative Physical Exam - Vital signs Vitals: Temp Pulse Resp BP Pulse Ox 97.7 F 69 16 129/73 H 98 08/07/20 11:24 08/07/20 11:24 08/07/20 11:24 08/07/20 11:24 08/07/20 11:24 Interpretation: Normal - General General appearance: Appears well, Alert - HEENT Head: Normocephalic, Atraumatic Eyes: Normal Pupils: PERRL - Respiratory Respiratory status: No respiratory distress Chest status: Nontender Breath sounds: Normal Chest palpation: Normal - Cardiovascular Rhythm: Regular Heart sounds: Normal auscultation Murmur: No - Abdominal Inspection: Normal Distension: No distension Bowel sounds: Normal Tenderness: Nontender Organomegaly: No organomegaly - Back Back: Normal, Nontender - Extremities General upper extremity: Normal inspection, Nontender, Normal color, Normal ROM, Normal temperature General lower extremity: Normal inspection, Nontender, Normal color, Normal ROM, Normal temperature, Normal weight bearing. No: Dom's sign - Neurological Neuro grossly intact: Yes Cognition: Normal Orientation: AAOx4 Alvarado Coma Scale Eye Opening: Spontaneous Michelle Coma Scale Verbal: Oriented Michelle Coma Scale Motor: Obeys Commands Alvarado Coma Scale Total: 15 Speech: Normal Motor strength normal: LUE, RUE, LLE, RLE Sensory: Normal - Psychological Associated symptoms: Normal affect, Normal mood - Skin Skin Temperature: Warm Skin Moisture: Dry Skin Color: Normal Course - Re-evaluation Re-evalutation: 08/07/20 15:47 Patient presented with chest pain. She is now chest pain-free. She received aspirin. She does have a history of 50% LAD lesion that was not stented this was approximate 3 years ago. It seems most prudent with her chest pain today and the history of the LAD lesion and given the patient's age that she be admitted for serial enzymes and further evaluation. I have spoke with Dr. Dianne medina a sales host who states he will see the patient tomorrow. She is currently at this time waiting on a CTA. At this shows an embolism she will obviously need to be anticoagulated. - Vital Signs Vital signs: Temp Pulse Resp BP Pulse Ox 97.7 F 69 16 134/64 H 97 08/07/20 11:24 08/07/20 11:24 08/07/20 14:01 08/07/20 14:01 08/07/20 14:01 - Laboratory Result Diagrams: 08/07/20 11:49 08/07/20 11:49 Laboratory results interpreted by me: 08/07/20 11:49 Glucose 186 H - Diagnostic Test Radiology reviewed: Image reviewed, Reports reviewed - EKG Interpretation by Me EKG shows normal: Sinus rhythm Rate: Bradycardia - 59 Rhythm: NSR Coolidge/QRS: Left axis deviation Discharge - Discharge Clinical Impression: Chest pain Qualifiers: Chest pain type: unspecified Qualified Code(s): R07.9 - Chest pain, unspecified Condition: Fair Disposition: ADMITTED INPATIENT Admitting Provider: Dennis (Hospitalist) Unit Admitted: Telemetry Referrals: KULWANT GIL MD [Primary Care Provider] - Follow up as needed
--- NOTE | 2020-08-07 16:00 | RADIOLOGY REPORT (SQ) ---
EXAM DESCRIPTION: CTA CHEST IMAGES COMPLETED DATE/TIME: 08/07/2020 3:19 pm REASON FOR STUDY: cp COMPARISON: 08/07/2020 in 12/10/2016 TECHNIQUE: CT scan of the chest performed using helical scanning technique with dynamic intravenous contrast injection. Images reviewed with lung, soft tissue and bone windows. Reconstructed coronal and sagittal MPR images reviewed. Additional 3 dimensional post-processing performed to develop Maximal Intensity Projection images (OK P). All images stored on PACS. All CT scanners at this facility use dose modulation, iterative reconstruction, and/or weight based d osing when appropriate to reduce radiation dose to as low as reasonably achievable (ALARA). [facility]: Dose Right [facility]: CareDose [facility]: Dose Right [facility]: Teradose 4D [facility]: Tower Paddle Boards CONTRAST TYPE AND DOSE: contrast/concentration: Isovue 350.00 mmol/ml; Total Contrast Delivered: 56. 0 ml; Total Saline Delivered: 65.9 ml Contrast bolus optimized for the pulmonary arteries. Not diagnostic for the aorta. RENAL FUNCTION: BUN 20; creatinine 0.88 RADIATION DOSE: CT Rad equipment meets quality standard of care and radiation dose reduction techniq ues were employed. CTDIvol: 9.9 - 16.6 mGy. DLP: 595 mGy-cm. . LIMITATIONS: None. FINDINGS: LUNGS AND PLEURA: No masses, infiltrates, or pneumothorax. No pleural effusions or pleura l calcifications. AORTA AND GREAT VESSELS: No aneurysm. Contrast bolus not optimized for the aorta. HEART: No pericardial effusion. There appears to be a left atrial occlusion device. Coronary artery calcifications are demonstrated. PULMONARY ARTERIES: No emboli visualized in the main pulmonary arteries or the segmental branches. HILAR AND MEDIASTINAL STRUCTURES: No identified masses or abnormal nodes. HARDWARE: Likely left atrial occlusion device UPPER ABDOMEN: Multiple hypoattenuating foci seen within the kidneys likely represent cysts. These a re incompletely characterized. Small hiatal hernia. THYROID AND OTHER SOFT TISSUES: No masses. No adenopathy. BONES: No acute or significant finding. 3D MIPS: Confirm above findings. OTHER: No other significant finding. IMPRESSION: No central or segmental pulmonary embolus. No evidence of acute cardiopulmonary abnorma lity. COMMENT: Quality ID # [id number]: Final reports with documentation of one or more dose reduction techniques (e.g., Automated exposure control, adjustment of the mA and/or kV according to patient size, use of iterative reconstruction technique) TECHNICAL DOCUMENTATION: JOB ID: [id number] 2010 [employer]- All Rights Reserved Reading location - IP/workstation name: [email or web address]
[2020-08-07] MEDS ORDERED: ACETAMINOPHEN 325 MG TABLET PO PRN (17:31)
[2020-08-07] MEDS ORDERED: DEXTROSE 50%-WATER 25 GM/50 ML DISP.SYRIN IV PRN ×2 (17:31)
[2020-08-07] MEDS ORDERED: DEXTROSE 40% GEL 15 GM TUBE PO PRN ×2 (17:31)
[2020-08-07] MEDS ORDERED: GLUCAGON,HUMAN RECOMB 1 MG INJ SUBCUT PRN (17:31)
[2020-08-07] MEDS ORDERED: ONDANSETRON HCL INJ/PF 4 MG/2 ML SDV IV PRN (17:31)
--- NOTE | 2020-08-07 17:44 | PDOC H&P ---
History of Present Illness Admission Date/PCP: 08/07/20 16:04 KULWANT GIL MD History of Present Illness: RIGOBERTO MTZ is a 89 year old female with a history of atrial fibrillation and coronary artery disease, as well as hypertension and kqk-[id number] type 2 diabetes mellitus, who presents with chest pain. Onset was this morning around 1030. Lasted about 20 to 30 minutes. Midsternal chest pain that she felt through to her back and into her left shoulder. She describes it as a squeezing pressure. She had some associated nausea but did not vomit. Her daughter came over to her house after the patient called her and the daughter said the patient looked pale to her at that time. The patient was driving in her car at the time of the discomfort, she had just left her house and then the pain came on so she turned around and went back home and called her daughter. S he called her truck mechanic apprentice office, Dr. Matthews in [place], and was instructed to come here. The patient has a history of atrial fibrillation but is currently in a sinus rhythm. She had been on Eliquis but was taken off of that because she had some persistent bleeding issues. She had a device called a watchman placed. She apparently had a cardiac catheterization about 3 years ago and had a block age of approximately 50% and one of her vessels, she does not know which one, and apparently it was not stented, unknown whether or not it was amenable to stenting. She has not had a stress test or any other cardiac imaging since then. In the ER she had a normal examination, normal EKG, and negative troponins. She had 1 momentary recurrence of her discomfort in the ER but she is not having any of that at this time. She does take an aspirin at home. She does not smoke. 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 Psychiatric Medical History: Denies: Depression Hematology: Reports: Anemia - hx of Denies: Sickle Cell Disease Past Surgical History Past Surgical History: Reports: Tonsillectomy Denies: Amputation, Hysterectomy, Mastectomy, Pacemaker Social History Smoking Status: Never Smoker Frequency of Alcohol Use: None Hx Recreational Drug Use: No Drugs: None Hx Prescription Drug Abuse: No Family History Family History: Reviewed & Not Pertinent, CAD, DM Parental Family History Reviewed: Yes Children Family History Reviewed: Yes Sibling(s) Family History Reviewed.: Yes Medication/Allergy Home Medications: Apixaban [Eliquis 5 mg Tablet] 5 mg PO BID 09/04/17 Atorvastatin Calcium [Lipitor 10 mg Tablet] 20 mg PO QHS 09/04/17 Esomeprazole Mag Trihydrate [Nexium] 20 mg PO QPM 09/04/17 Lisinopril 20 mg PO BID 09/04/17 Sotalol HCl [Sotalol] 40 mg PO Q12 09/04/17 Spironolactone [Aldactone 25 mg Tablet] 12.5 mg PO QAM 09/25/17 Amlodipine Besylate [Norvasc 5 mg Tablet] 5 mg PO DAILY 06/07/18 Docusate Sodium [Colace 100 mg Capsule] 100 mg PO DAILY 06/07/18 Montelukast Sodium [Singulair 10 mg Tablet] 10 mg PO DAILY 06/07/18 Glimepiride 2 mg PO DAILY 12/19/18 Allergies/Adverse Reactions: No Known Allergies Allergy (Verified 08/07/20 13:18) Review of Systems All systems: reviewed and no additional remarkable complaints except as stated - All systems were reviewed and were negative except as noted in the HPI Physical Exam Vital Signs: Temp Pulse Resp BP Pulse Ox 97.7 F 69 20 146/73 H 95 08/07/20 11:24 08/07/20 11:24 08/07/20 16:01 08/07/20 16:01 08/07/20 16:01 Intake & Output 08/06/20 08/07/20 08/08/20 06:59 06:59 06:59 Weight 74.5 kg General appearance: PRESENT: no acute distress, cooperative, obese Head exam: PRESENT: atraumatic, normocephalic Eye exam: PRESENT: EOMI, PERRLA. ABSENT: conjunctival injection, nystagmus, scleral icterus Ear exam: PRESENT: normal external ear exam Neck exam: PRESENT: full ROM. ABSENT: carotid bruit, JVD, lymphadenopathy, meningismus, tenderness, thyromegaly Respiratory exam: PRESENT: clear to auscultation usha, symmetrical, unlabored. ABSENT: accessory muscle use, chest wall tenderness, crackles, prolonged expiratory phas, rhonchi, tachypnea, wheezes Cardiovascular exam: PRESENT: RRR, +S1, +S2 Pulses: PRESENT: normal carotid pulses Vascular exam: PRESENT: normal capillary refill GI/Abdominal exam: PRESENT: normal bowel sounds, soft. ABSENT: distended, guarding, rebound, tenderness Extremities exam: ABSENT: clubbing, pedal edema Musculoskeletal exam: PRESENT: normal inspection. ABSENT: deformity Neurological exam: PRESENT: alert, awake, oriented to person, oriented to place, oriented to time, oriented to situation, CN II-XII grossly intact. ABSENT: motor sensory deficit Psychiatric exam: PRESENT: appropriate affect, normal mood Skin exam: PRESENT: dry, warm Results Laboratory Results: 08/07/20 11:49 08/07/20 11:49 08/07/20 08/07/20 11:49 11:49 WBC 5.7 RBC 4.94 Hgb 15.4 Hct 44.5 MCV 90 MCH 31.1 MCHC 34.5 RDW 13.1 Plt Count 220 Seg Neutrophils % 65.2 Sodium 141.9 Potassium 4.3 Chloride 105 Carbon Dioxide 26 Anion Gap 11 BUN 20 Creatinine 0.88 Est GFR ( Amer) > 60 Glucose 186 H Calcium 9.6 Total Bilirubin 0.4 AST 20 Alkaline Phosphatase 92 Total Protein 7.5 Albumin 4.6 08/07/20 08/07/20 11:49 11:49 Creatine Kinase 49 CK-MB (CK-2) 0.69 Troponin I < 0.012 Impressions: Chest X-Ray 08/07/20 11:39 IMPRESSION: NO ACUTE RADIOGRAPHIC FINDING IN THE CHEST. Chest/Abdomen CTA 08/07/20 14:24 IMPRESSION: No central or segmental pulmonary embolus. No evidence of acute cardiopulmonary abnormality. Assessment and Plan - Diagnosis (1) Chest pain Qualifiers: Chest pain type: chest pain due to myocardial ischemia Ischemic chest pain type: stable angina pectoris Qualified Code(s): I20.8 - Other forms of angina pectoris Is this a current diagnosis for this admission?: Yes (2) Coronary artery disease Qualifiers: Coronary Disease-Associated Artery/Lesion type: [place] artery [place] vs. transplanted heart: [place] heart Associated angina: with stable angina Qualified Code(s): I25.118 - Atherosclerotic heart disease of [place] coronary artery with other forms of angina pectoris Is this a current diagnosis for this admission?: Yes (3) Diabetes mellitus type II, controlled Qualifiers: Diabetes mellitus fci insulin use: without fci use Diabetes mellitus complication status: without complication Qualified Code(s): E11.9 - Type 2 diabetes mellitus without complications Is this a current diagnosis for this admission?: Yes (4) Hypertension Qualifiers: Hypertension type: essential hypertension Qualified Code(s): I10 - Essential (primary) hypertension Is this a current diagnosis for this admission?: Yes (5) Paroxysmal atrial fibrillation Is this a current diagnosis for this admission?: Yes - Plan Summary Summary: We will continue her home medications for her comorbid conditions. We will trend her troponins and monitor her on telemetry. We will continue her aspirin. We will check a lipid panel in the morning. Repeat an EKG in the morning. She said if she rules out for HI she would like to have her testing done with her truck mechanic apprentice if indicated. As previously noted, she sees a truck mechanic apprentice named Dr. Matthews in [place]. - Time Time Spent with patient: 35 or more minutes Anticipated Discharge Disposition: Home, Self Care Anticipated Discharge Timeframe: within 24 hours
--- NOTE | 2020-08-07 18:04 | EKG REPORT ---
SEVERITY:- ABNORMAL ECG - SINUS ARRHYTHMIA PROBABLE INFERIOR INFARCT, OLD BORDERLINE R WAVE PROGRESSION, ANTERIOR LEADS : Confirmed by: Dakota Chavez MD 07-Aug-2020 18:04:01
[2020-08-08] MEDS ORDERED: MELATONIN 5 MG TABLET PO PRN (01:00)
[2020-08-08 06:29] LABS: CHOLESTEROL 116.31 mg/dL (0-200); TRIGLYCERIDES 166 mg/dL (<150)
[2020-08-08 06:35] LABS: VLDL CHOLESTEROL 33.2 mg/dL (10-31)
[2020-08-08 06:41] LABS: DIRECT LDL 65 mg/dL (<100)
[2020-08-08 08:12] VITALS: BP 136/60
[2020-08-08] MEDS ORDERED: ALPRAZOLAM 0.25 MG TABLET PO PRN (08:35)
[2020-08-08] MEDS ORDERED: NITROGLYCERIN 0.4 MG/TAB 25 TAB/BOTTLE SL PRN (08:35)
--- NOTE | 2020-08-08 09:41 | EKG REPORT ---
SEVERITY:- OTHERWISE NORMAL ECG - SINUS RHYTHM BORDERLINE LEFT AXIS DEVIATION : Confirmed by: Dakota Chavez MD 08-Aug-2020 09:41:16
[2020-08-08] MEDS ORDERED: SOTALOL HCL 80 MG TABLET PO SCH (10:00)
--- NOTE | 2020-08-08 12:47 | PDOC DISCHARGE SUMMARY ---
Impression - Admit/DC Date/PCP Admission Date/Primary Care Provider: 08/07/20 16:04 KULWANT GIL MD Discharge Date: 08/08/20 - Discharge Diagnosis (1) Chest pain Is this a current diagnosis for this admission?: Yes (2) Coronary artery disease Is this a current diagnosis for this admission?: Yes (3) Diabetes mellitus type II, controlled Is this a current diagnosis for this admission?: Yes (4) Hypertension Is this a current diagnosis for this admission?: Yes (5) Paroxysmal atrial fibrillation Is this a current diagnosis for this admission?: Yes - Additional Information Resuscitation Status: Full Code Discharge Diet: As Tolerated, Cardiac Discharge Activity: Activity As Tolerated Referrals: DAMIEN MATTHEWS MD [ASSOCIATE] - 08/14/20 1:15 pm MARICARMEN LERMA MD [COMMUNITY BASED STAFF] - 08/14/20 10:30 am Home Medications: Atorvastatin Calcium [Lipitor 10 mg Tablet] 20 mg PO QHS@209909/04/17 Esomeprazole Mag Trihydrate [Nexium] 20 mg PO QPM@199909/04/17 Lisinopril 20 mg PO BID@08,209909/04/17 Sotalol HCl [Sotalol] 40 mg PO Q12@899,209909/04/17 Spironolactone [Aldactone 25 mg Tablet] 12.5 mg PO QAM 09/25/17 Amlodipine Besylate [Norvasc 5 mg Tablet] 5 mg PO QPM@199906/07/18 Montelukast Sodium [Singulair 10 mg Tablet] 10 mg PO QHS@209906/07/18 Glimepiride 2 mg PO QAM 12/19/18 Alprazolam 0.125 mg PO HSP PRN 08/07/20 Aspirin [Ecotrin 81 mg EC Tablet] 81 mg PO QHS@209908/07/20 Empagliflozin [Jardiance] 10 mg PO QAM 08/07/20 Ergocalciferol (Vitamin D2) [Vitamin D2] 50 mcg PO WATERMAN@0800 08/07/20 Nitroglycerin [Nitrostat 0.4 mg (1/150 Gr) Tabs 25/Bottle] 1 tab SL Q5MP PRN 08/07/20 History of Present Illiness History of Present Illness: According to admitting provider: RIGOBERTO Collette MTZ is a 89 year old female with a history of atrial fibrillation and coronary artery disease, as well as hypertension and wrm-fhesslb-vuqjubjhy type 2 diabetes mellitus, who presents with chest pain. Onset was this morning around 1030. Lasted about 20 to 30 minutes. Midsternal chest pain that she felt through to her back and into her left shoulder. She describes it as a squeezing pressure. She had some associated nausea but did not vomit. Her daughter came over to her house after the patient called her and the daughter said the patient looked pale to her at that time. The patient was driving in her car at the time of the discomfort, she had just left her house and then the pain came on so she turned around and went back home and called her daughter. She called her clinical manager home care office, Dr. Matthews in [place], and was instructed to come here. The patient has a history of atrial fibrillation but is currently in a sinus rhythm. She had been on Eliquis but was taken off of that because she had some persistent bleeding issues. She had a device called a watchman placed. She apparently had a cardiac catheterization about 3 years ago and had a blockage of approximately 50% and one of her vessels, she does not know which one, and apparently it was not stented, unknown whether or not it was amenable to stenting. She has not had a stress test or any other cardiac imaging since then. In the ER she had a normal examination, normal EKG, and negative troponins. She had 1 momentary recurrence of her discomfort in the ER but she is not having any of that at this time. She does take an aspirin at home. She does not smoke. Hospital Course Hospital Course: Patient was admitted to the hospital for evaluation of chest pain given her comorbid conditions. EKG was performed and reviewed. Chest x-ray was unremarkable. CTA of the chest was normal. She was admitted troponins trended and ended up being all negative. Patient's chest pain has resolved. Patient states that she has been having a lot of stressors and anxiety in her life regarding events, her daughter moving out, living alone, and her outreach program work. Discussed ways of trying to cope with stress. Today, patient's chest pain has resolved and she would like to go home. I have set patient up for follow-up with her primary clinical manager home care Dr. Damien Matthews as well as her primary care provider within a week. Physical Exam Vital Signs: Temp Pulse Resp BP Pulse Ox 98.4 F 59 L 16 136/60 H 99 08/08/20 12:29 08/08/20 12:29 08/08/20 12:29 08/08/20 12:29 08/08/20 12:29 Intake & Output 08/07/20 08/08/20 08/09/20 06:59 06:59 06:59 Weight 74.5 kg General appearance: PRESENT: no acute distress, cooperative Neck exam: PRESENT: JVD Respiratory exam: PRESENT: clear to auscultation usha Cardiovascular exam: PRESENT: +S1, +S2. ABSENT: tachycardia Neurological exam: PRESENT: alert, awake Results Laboratory Results: WBC 5.7 10^3/uL (4.0-10.5) 08/07/20 11:49 RBC 4.94 10^6/uL (3.72-5.28) 08/07/20 11:49 Hgb 15.4 g/dL (12.0-15.5) 08/07/20 11:49 Hct 44.5 % (36.0-47.0) 08/07/20 11:49 MCV 90 fl (80-97) 08/07/20 11:49 MCH 31.1 pg (27.0-33.4) 08/07/20 11:49 MCHC 34.5 g/dL (32.0-36.0) 08/07/20 11:49 RDW 13.1 % (11.5-14.0) 08/07/20 11:49 Plt Count 220 10^3/uL (150-450) 08/07/20 11:49 Lymph % (Auto) 23.3 % (13-45) 08/07/20 11:49 [place] % (Auto) 9.0 % (3-13) 08/07/20 11:49 Eos % (Auto) 1.9 % (0-6) 08/07/20 11:49 Baso % (Auto) 0.6 % (0-2) 08/07/20 11:49 Absolute Neuts (auto) 3.7 10^3/uL (1.7-8.2) 08/07/20 11:49 Absolute Lymphs (auto) 1.3 10^3/uL (0.5-4.7) 08/07/20 11:49 Absolute Monos (auto) 0.5 10^3/uL (0.1-1.4) 08/07/20 11:49 Absolute Eos (auto) 0.1 10^3/uL (0.0-0.6) 08/07/20 11:49 Absolute Basos (auto) 0.0 10^3/uL (0.0-0.2) 08/07/20 11:49 Seg Neutrophils % 65.2 % (42-78) 08/07/20 11:49 Sodium 141.9 mmol/L (137-145) 08/07/20 11:49 Potassium 4.3 mmol/L (3.6-5.0) 08/07/20 11:49 Chloride 105 mmol/L (98-107) 08/07/20 11:49 Carbon Dioxide 26 mmol/L (22-30) 08/07/20 11:49 Anion Gap 11 (5-19) 08/07/20 11:49 BUN 20 mg/dL (7-20) 08/07/20 11:49 Creatinine 0.88 mg/dL (0.52-1.25) 08/07/20 11:49 Est GFR ( Amer) > 60 (>60) 08/07/20 11:49 Est GFR (MDRD) Non-Af > 60 (>60) 08/07/20 11:49 Glucose 186 mg/dL (75-110) H 08/07/20 11:49 Calcium 9.6 mg/dL (8.4-10.2) 08/07/20 11:49 Total Bilirubin 0.4 mg/dL (0.2-1.3) 08/07/20 11:49 Direct Bilirubin 0.1 mg/dL (0.0-0.4) 08/07/20 11:49 Neonat Total Bilirubin Not Reportable 08/07/20 11:49 Neonat Direct Bilirubin Not Reportable 08/07/20 11:49 Neonat Indirect Bili Not Reportable 08/07/20 11:49 AST 20 U/L (14-36) 08/07/20 11:49 ALT 18 U/L (<35) 08/07/20 11:49 Alkaline Phosphatase 92 U/L (38-126) 08/07/20 11:49 Creatine Kinase 49 U/L (30-135) 08/07/20 11:49 CK-MB (CK-2) 0.69 ng/mL (<4.55) 08/07/20 11:49 Troponin I < 0.012 ng/mL 08/08/20 05:55 Total Protein 7.5 g/dL (6.3-8.2) 08/07/20 11:49 Albumin 4.6 g/dL (3.5-5.0) 08/07/20 11:49 Triglycerides 166 mg/dL (<150) H 08/08/20 05:55 Cholesterol 116.31 mg/dL (0-200) 08/08/20 05:55 LDL Cholesterol Direct 65 mg/dL (<100) 08/08/20 05:55 VLDL Cholesterol 33.2 mg/dL (10-31) H 08/08/20 05:55 HDL Cholesterol 28 mg/dL (>40) L 08/08/20 05:55 08/07/20 08/07/20 08/07/20 11:49 17:12 23:31 CK-MB (CK-2) 0.69 Troponin I < 0.012 < 0.012 < 0.012 08/08/20 05:55 CK-MB (CK-2) Troponin I < 0.012 Impressions: Chest X-Ray 08/07/20 11:39 IMPRESSION: NO ACUTE RADIOGRAPHIC FINDING IN THE CHEST. Chest/Abdomen CTA 08/07/20 14:24 IMPRESSION: No central or segmental pulmonary embolus. No evidence of acute cardiopulmonary abnormality. Plan Time Spent: Less than 30 Minutes Stroke Is this a Stroke Patient?: No Acute Heart Failure Is this a Heart Failure Patient?: No
[2020-08-08] MEDS ORDERED: AMLODIPINE BESYLATE 5 MG TABLET PO SCH (20:00)
[2020-08-08] MEDS ORDERED: ATORVASTATIN CALCIUM 10 MG TABLET PO SCH (21:00)
[2020-08-08] MEDS ORDERED: ATORVASTATIN CALCIUM 20 MG TABLET PO SCH (21:00)
[2020-08-08] MEDS ORDERED: ASPIRIN 81 MG TABLET, ENT COATED PO SCH (21:00)
[2020-08-08] MEDS ORDERED: MONTELUKAST SODIUM 10 MG TABLET PO SCH (21:00)
[2020-08-09] MEDS ORDERED: SPIRONOLACTONE 25 MG TABLET PO SCH (08:00)
== END 2020-08-08 12:58 | disposition home or self-care (01) ==
LOC: ER 11:08 → INTOOBSV 16:04 → EH 16:04 → 4W 18:47
PROVIDERS: ADMIT Family Medicine; ATTEND Internal Medicine
DX: R07.89 Other chest pain (principal); I25.118 Atherosclerotic heart disease of native coronary artery with other forms of angina pectoris; E11.9 Type 2 diabetes mellitus without complications; I10 Essential (primary) hypertension; I48.0 Paroxysmal atrial fibrillation; R11.0 Nausea; F41.9 Anxiety disorder, unspecified; K21.9 Gastro-esophageal reflux disease without esophagitis; Z73.3 Stress, not elsewhere classified; E66.9 Obesity, unspecified; R06.02 Shortness of breath; E78.5 Hyperlipidemia, unspecified; M06.849 Other specified rheumatoid arthritis, unspecified hand; Z79.82 Long term (current) use of aspirin; Z79.899 Other long term (current) drug therapy; Z79.84 Long term (current) use of oral hypoglycemic drugs; Z60.2 Problems related to living alone; Z82.49 Family history of ischemic heart disease and other diseases of the circulatory system; Z95.818 Presence of other cardiac implants and grafts
CPT/HCPCS: 93005 ×2; 99285; 36415 ×2; 82553; 82550; 85025; 80053; 84484 ×2; 80061; 71045; 71275; 93010 ×2; G0378 ×3; A9270 ×3; J3490

== ENCOUNTER 2020-10-17 22:00 | Emergency (ER) | payer MEDICARE ==
[2020-10-18] MEDS ORDERED: ONDANSETRON HCL INJ/PF 4 MG/2 ML SDV IV ONE ×3 (00:20→07:25)
[2020-10-18] MEDS ORDERED: MORPHINE SULFATE 10 MG/ML INJ IV ONE ×5 (00:20→07:31)
--- NOTE | 2020-10-18 00:22 | ER Document Report ---
ED Medical Screen (RME) - General Chief Complaint: Abdominal Pain >50 Stated Complaint: ABDOMINAL PAIN Time Seen by Provider: 10/18/20 00:12 Primary Care Provider: KULWANT GIL MD [Primary Care Provider] - Follow up as needed Mode of Arrival: Wheelchair Information source: Patient, Relative TRAVEL OUTSIDE OF THE [place] IN LAST 30 DAYS: No - HPI Patient complains to provider of: Abdo pain Notes: 10/18/20 00:21 Patient here with her daughter. Patient states that she has been having some significant abdominal pain for the last 24 hours. She states she has not had a bowel movement in the last 2 to 3 days. Today she started having significant generalized abdominal pain with nausea vomiting. She denies any prior abdominal surgeries and no history of bowel obstruction. No fever. Exam: No distress, nontoxic appearing. Patient does appear to be rather uncomfortable. Murmur noted. Lungs clear and equal throughout. Diffuse abdominal tenderness on limited triage abdominal exam. An initial examination was made on the patient as part of the triage process, and it was determined a more comprehensive evaluation was necessary. Initial orders were placed and patient was transferred to another provider in the ED who assumed care and finished evaluation and plan. - Related Data Allergies/Adverse Reactions: No Known Allergies Allergy (Verified 08/07/20 13:18) Past Medical History - Past Medical History Cardiac Medical History: Reports: Hx Atrial Fibrillation, Hx Coronary Artery Disease - on meds, Hx Hypercholesterolemia, Hx Hypertension Denies: Hx Heart Attack Pulmonary Medical History: Denies: Hx Asthma, Hx Bronchitis, Hx COPD, Hx Pneumonia Neurological Medical History: Denies: Hx Cerebrovascular Accident, Hx Seizures Endocrine Medical History: Reports: Hx Diabetes Mellitus Type 1, Hx Diabetes Mellitus Type 2 Renal/ Medical History: Denies: Hx Peritoneal Dialysis GI Medical History: Reports: Hx Diverticulitis, Hx Gastroesophageal Reflux Disease Musculoskeltal Medical History: Reports Hx Arthritis Psychiatric Medical History: Denies: Hx Depression Past Surgical History: Reports: Hx Cardiac Surgery - watchmen, Hx Tonsillectomy. Denies: Hx Hysterectomy, Hx Mastectomy, Hx Open Heart Surgery, Hx Pacemaker - Immunizations Hx Diphtheria, Pertussis, Tetanus Vaccination: No Physical Exam - Vital signs Vitals: Temp Pulse Resp BP Pulse Ox 97.3 F 57 L 18 180/79 H 99 10/17/20 22:37 10/17/20 22:37 10/17/20 22:37 10/17/20 22:37 10/17/20 22:37 Course - Vital Signs Vital signs: Temp Pulse Resp BP Pulse Ox 97.3 F 57 L 18 180/79 H 99 10/17/20 22:37 10/17/20 22:37 10/17/20 22:37 10/17/20 22:37 10/17/20 22:37 Doctor's Discharge - Discharge Referrals: KULWANT GIL MD [Primary Care Provider] - Follow up as needed
--- NOTE | 2020-10-18 01:10 | ER Document Report ---
ED GI/ - General Chief Complaint: Abdominal Pain >50 Stated Complaint: ABDOMINAL PAIN Time Seen by Provider: 10/18/20 00:12 Primary Care Provider: KULWANT GIL MD [Primary Care Provider] - Follow up as needed Mode of Arrival: Wheelchair Notes: Patient is an 89-year-old female who comes emergency department for chief complaint of lower abdominal pain. She states she started having some gen eralized mild pain for the past 2 days or so but she started having severe pain today and vomited 4 times. Last meal at 6 PM. She denies fever/chills. She denies chest pain or shortness of breath. She has not had a bowel movement in about 3 days. She denies any abdominal surgeries. Past medical history of atrial fibrillation, previously on anticoagulation but taken off per patient. Also has a history of hypertension, hyperlipidemia, type 2 diabetes. She lives alone but her daughter brought her to the emergency department. TRAVEL OUTSIDE OF THE [place] IN LAST 30 DAYS: No - Related Data Allergies/Adverse Reactions: No Known Allergies Allergy (Verified 08/07/20 13:18) Past Medical History - General Information source: Patient, Relative - Social History Smoking Status: Never Smoker Frequency of alcohol use: None Drug Abuse: None Lives with: Alone Family History: Reviewed & Not Pertinent, CAD, DM - Past Medical History Cardiac Medical History: Reports: Hx Atrial Fibrillation, Hx Coronary Artery Disease - on meds, Hx Hypercholesterolemia, Hx Hypertension Denies: Hx Heart Attack Pulmonary Medical History: Denies: Hx Asthma, Hx Bronchitis, Hx COPD, Hx Pneumonia Neurological Medical History: Denies: Hx Cerebrovascular Accident, Hx Seizures Endocrine Medical History: Reports: Hx Diabetes Mellitus Type 2 Renal/ Medical History: Denies: Hx Peritoneal Dialysis GI Medical History: Reports: Hx Diverticulitis, Hx Gastroesophageal Reflux Di sease Musculoskeletal Medical History: Reports Hx Arthritis Psychiatric Medical History: Denies: Hx Depression Past Surgical History: Reports: Hx Cardiac Surgery - watchmen, Hx Tonsillectomy. Denies: Hx Hysterectomy, Hx Mastectomy, Hx Open Heart Surgery, Hx Pacemaker - Immunizations Hx Diphtheria, Pertussis, Tetanus Vaccination: No Hx Pneumococcal Vaccination: 08/03/15 Review of Systems - Review of Systems Constitutional: No symptoms reported EENT: No symptoms reported Cardiovascular: No symptoms reported Respiratory: No symptoms reported Gastrointestinal: See HPI Genitourinary: No symptoms reported Female Genitourinary: No symptoms reported Musculoskeletal: No symptoms reported Skin: No symptoms reported Hematologic/Lymphatic: No symptoms reported Neurological/Psychological: No symptoms reported Physical Exam - Vital signs Vitals: Temp Pulse Resp BP Pulse Ox 97.3 F 57 L 18 180/79 H 99 10/17/20 22:37 10/17/20 22:37 10/17/20 22:37 10/17/20 22:37 10/17/20 22:37 - Notes Notes: GENERAL: Patient is alert and interactive but somewhat ill-appearing and in moderate distress HEAD: Normocephalic, atraumatic. EYES: Pupils equal, round, and reactive to light. Extraocular movements intact. ENT: Oral mucosa moist, tongue midline. Oropharynx unremarkable. Airway patent. NECK: Full range of motion. Supple. Trachea midline. No lymphadenopathy. LUNGS: Clear to auscultation bilaterally, no wheezes, rales, or rhonchi. No respiratory distress. Non-tender chest wall. HEART: Regular rate and rhythm. No murmur ABDOMEN: Generalized abdominal tenderness, questionable minimal distention, guarding is present although this is diffuse. Bowel sounds are present but quiet EXTREMITIES: Moves all 4 extremities spontaneously. No edema, normal radial and dorsalis pedis pulses bilaterally. No cyanosis. BACK: no cervical, thoracic, lumbar midline tenderness. No saddle anesthesia, normal distal neurovascular exam. Moves all extremities in full range of motion. NEUROLOGICAL: Alert and oriented x3. Normal speech. Cranial nerves II through XII grossly intact. Strength 5/5 in all extremities. PSYCH: Normal affect, normal mood. SKIN: Warm, dry, normal turgor. No rashes or lesions noted. Course - Re-evaluation Re-evalutation: Patient is somewhat ill-appearing, has generalized abdominal tenderness with some guarding, this is nonspecific. Abdomen is not rigid, vital signs are unremarkable, CBC unremarkable, remaining work-up still pending. We have had a lot of trouble placing an IV, after 5 attempts ultrasound IV was placed in the left AC. CAT scan finally obtained, this shows perforated large intestine with stool leaking into the pelvis. Patient will require emergent surgery. Patient will be covered with Zosyn. Discussed with Dr. Hernandez. 10/18/20 04:25 Called and spoke with Dr. Juan, general surgery, he will come evaluate the patient. 10/18/20 04:30 I discussed details with patient. Patient is full code. Patient states understanding and requests surgery. I called and spoke with patient's daughter, Denisse. I discussed details, seriousness of her condition, she states that she will come see the patient and she should be here between 7 and 8 AM. I explained that she might be in surgery at that time. 10/18/20 Called and spoke with [facility], I spoke with Dr. Dale Steiner, they accept for transfer, however transfer center reported they are in full diversion and they have no beds, as result this was ultimately canceled. This is secondary to patient being treated during the COVID-19 pandemic. Patient states she would like to try [facility]. 10/18/[address] Burch, general surgery at [facility], patient will be accepted for transfer. They do have ICU beds available. Patient is in full agreement with this. IV access lost again, updated Dr. Hernandez, will attempt central line. Central line attempted in both IJ and femoral locations, however patient appears to have extremely tortuous and difficult blood vessels, these are very easy to access but will not thread either type of line that we have, Dr. Hernandez did come to bedside to assist after initial difficulty and we were not successful. Fortunately after this I was able to place another 18-gauge IV in the right arm. Patient is still pending transfer. 10/18/20 06:27 Spoke with Denisse, patient's daughter again, she will meet her at [facility]. She states agreement with transfer and appreciation for care. 10/18/20 06:40 After evaluation, Dr. Hernandez recommends I call Dr. Howe general surgery, he is coming to attempt a central line. 10/18/20 07:07 Dr. Howe was ultimately successful with central line. - Vital Signs Vital signs: Temp Pulse Resp BP Pulse Ox 97.3 F 57 L 18 180/79 H 99 10/17/20 22:37 10/17/20 22:37 10/17/20 22:37 10/17/20 22:37 10/17/20 22:37 - Laboratory Results Result Diagrams: 10/18/20 01:20 10/18/20 01:20 Laboratory Results Interpreted: 10/18/20 10/18/20 01:20 01:20 Hgb 15.9 H RDW 14.2 H Lymph % (Auto) 7.7 L [place] % (Auto) 2.8 L Absolute Lymphs (auto) 0.4 L Seg Neutrophils % 88.8 H BUN 26 H Est GFR (MDRD) Non-Af 58 L Glucose 258 H Critical Laboratory Results Reviewed: No Critical Results - Radiology Results Critical Radiology Results Reviewed: Yes Attending or Supervising Physician who Reviewed Radiology: Dr. Drake Critical Care Note - Critical Care Note Total time excluding time spent on procedures (mins): 60 - Perforation of the bowel Comments: Please allow 60 minutes of critical care time for evaluation and management of this patient with perforated intestine requiring emergent surgery. Interventions including pain management, IV fluids, broad-spectrum antibiotics, multiple reevaluations, time spent discussing the surgery, time spent calling multiple tertiary centers for transfer, time spent discussing with patient and family. Discharge - Discharge Clinical Impression: Perforated bowel Condition: Serious Disposition: [facility] Referrals: KULWANT GIL MD [Primary Care Provider] - Follow up as needed
[2020-10-18 01:32] LABS: ABSOLUTE LYMPHOCYTES (AUTO) 0.4 10^3/uL (0.5-4.7); ABSOLUTE MONOCYTES (AUTO) 0.2 10^3/uL (0.1-1.4); ABSOLUTE NEUT (AUTO) 4.9 10^3/uL (1.7-8.2); BASOPHILS % (AUTO) 0.5 % (0-2); EOSINOPHILS % (AUTO) 0.2 % (0-6); HEMATOCRIT 46.5 % (36.0-47.0); HEMOGLOBIN 15.9 g/dL (12.0-15.5); LYMPHOCYTES % (AUTO) 7.7 % (13-45); MEAN CORPUSCULAR HGB CONC 34.2 g/dL (32.0-36.0); MEAN CORPUSCULAR VOLUME 91 fl (80-97); MONOCYTES % (AUTO) 2.8 % (3-13); PLATELET COUNT 233 10^3/uL (150-450); RED BLOOD COUNT 5.14 10^6/uL (3.72-5.28); RED CELL DISTRIBUTION WIDTH 14.2 % (11.5-14.0); SEGMENTED NEUTROPHILS % (AUTO) 88.8 % (42-78); TOTAL CELLS COUNTED % (AUTO) 100 %; WHITE BLOOD COUNT 5.5 10^3/uL (4.0-10.5)
[2020-10-18] MEDS ORDERED: NORMAL SALINE 1000 ML 1,000 ML IV ONE ×2 (01:50→07:08)
[2020-10-18 01:53] LABS: ALBUMIN 4.8 g/dL (3.5-5.0); ALKALINE PHOSPHATASE 96 U/L (38-126); ANION GAP 13 (5-19); ASPARTATE AMINO TRANSFERASE 23 U/L (14-36); BILIRUBIN,DIRECT 0.4 mg/dL (0.0-0.4); BILIRUBIN,TOTAL 0.8 mg/dL (0.2-1.3); BLOOD UREA NITROGEN 26 mg/dL (7-20); CALCIUM 10.2 mg/dL (8.4-10.2); CARBON DIOXIDE 28 mmol/L (22-30); CHLORIDE 104 mmol/L (98-107); GLUCOSE 258 mg/dL (75-110); POTASSIUM 4.7 mmol/L (3.6-5.0); TOTAL PROTEIN 7.9 g/dL (6.3-8.2)
[2020-10-18] MEDS ORDERED: FENTANYL CITRATE INJ/PF 100 MCG/2 ML AMPUL IV ONE ×2 (03:50→07:44)
[2020-10-18] MEDS ORDERED: PIPERACILLIN/TAZOBACTAM 3.375 GM VIAL IV ONE ×2 (04:22→06:30)
--- NOTE | 2020-10-18 04:28 | RADIOLOGY REPORT (SQ) ---
CT abdomen and pelvis with contrast on 10/18/2020 at 3:31 AM CLINICAL INDICATION: Generalized abdominal pain, nausea and vomiting TECHNIQUE: Multiple axial images are obtained throughout the abdomen and pelvis following the administration of IV contrast, 87 mL of Omnipaque 350contrast was administered intravenously without complication. This exam was performed according to our departmental dose-optimization program, which includes automated exposure control, adjustment of the mA and/or kV according to patient size and/or use of iterative reconstruction technique. Total DLP is 1989.61 mGy*cm. COMPARISON: CT chest and upper abdomen from 08/07/2020 FINDINGS: Abdomen: There is minimal bibasilar atelectasis. There are several small foci of free intraperitoneal air in the abdomen. There is a small hiatal hernia. There are bilateral renal cysts. The solid abdominal organs are otherwise unremarkable. Vascular calcifications are noted. There is no abdominal adenopathy. There is no free fluid in the abdomen. The abdominal portion of the GI tract is unremarkable. Pelvis: There is a almita perforation along the posterior wall of the sigmoid colon with stool extending out of the sigmoid colon into the posterior pelvic cul-de-sac anterior to the rectum. The hole in the posterior wall of the sigmoid colon is seen well on axial image 69 of series 3 and sagittal image 53. Recommend urgent surgical consultation. SAEID Hernandez taking care of the patient, was made aware of this finding and recommendation by myself by phone on 10/18/2020 at 4:22 AM eastern time. There is diverticulosis of the colon. Multiple scattered foci of free air are noted in the pelvis. The pelvic portion of the GI tract including the appendix is otherwise unremarkable. Pelvic organs appear unremarkable by CT. There is no pelvic adenopathy. Degenerative changes are noted in the spine. IMPRESSION: 1. Almita perforation with spillage of stool content into the pelvis with the perforation/hole visualized along the posterior wall of the sigmoid colon as above. Recommend urgent surgical consultation. 2. Small hiatal hernia. 3. Diverticulosis.
[2020-10-18] MEDS ORDERED: NORMAL SALINE 1000 ML 1,000 ML IV PRN (04:37)
--- NOTE | 2020-10-18 05:03 | Progress Note ---
Provider Note Provider Note: Called to see patient regarding CT scan revealing free intra-abdominal air, and evidence of colonic perforation. On examination, the patient has an acute abdomen. Her CT scan does reveal a perforation at what appears to be the level of the lower sigmoid/upper rectum. The patient is 89 years old, she has diabetes, and heart disease. She will require ICU level of care and emergent surgery. I discussed the case with the nursing supervisor electric. We are currently on ICU diversion, and have no ICU beds available. I discussed this with Sy Hui in the ER. He is making arrangements to have the patient emergently transferred to a nearby facility that can provide her with ICU level care and surgical intervention. I am available if our bed situation changes, or a need arises.
[2020-10-18] MEDS ORDERED: MORPHINE SULFATE 10 MG/ML INJ IM ONE (06:45)
[2020-10-18] MEDS ORDERED: ONDANSETRON HCL INJ/PF 4 MG/2 ML SDV IM ONE (06:46)
[2020-10-18 07:39] VITALS: BP 150/70
--- NOTE | 2020-10-18 07:39 | Operative Report ---
Nonrecallable Operative Report DATE OF SURGERY: 10/18/20 PREOPERATIVE DIAGNOSIS: 1. Severe sepsis. 2. Acute abdomen. 3. Phlebosclerosis POSTOPERATIVE DIAGNOSIS: Same as above OPERATION: 1. Ultrasound-guided central venous puncture. 2. Left internal jugular vein central line placement. SURGEON: RIZWANA SAHNI ANESTHESIA: Local TISSUE REMOVED OR ALTERED: None COMPLICATIONS: None apparent ESTIMATED BLOOD LOSS: Minimal PROCEDURE: Drains/implants: Left IJ central line at 16 cm. Procedure in detail: After informed consent was obtained, the patient was laid in the Trendelenburg position in the emergency department. The left neck and chest were prepped and draped in a normal sterile fashion. The ultrasound was used to identify the left internal jugular vein. It was compressible with normal flow, although it was somewhat collapsed. The left neck was instilled with 1% lidocaine. Under direct ultrasonic guidance, the left internal jugular vein was cannulated using the supplied access needle. Dark venous, nonpulsatile blood was returned in the syringe. The wire was then inserted into the vein eas chung. The wire was found to be within the lumen of the vein using the ultrasound device. Picture documentation was saved and placed on the chart. The catheter was then slid over the wire using a modified Seldinger technique. The catheter was sutured to the skin. It was aspirated and flushed x3. Bedside pressure test was performed to ensure that venous pressure was present, and it was. Next, a dressing was placed and the procedure was concluded. All sponge, instrument, and needle counts were correct. Condition: Critical.
[2020-10-18] MEDS ORDERED: ONDANSETRON HCL INJ/PF 4 MG/2 ML SDV ONE (07:46)
--- NOTE | 2020-10-18 08:30 | RADIOLOGY REPORT (SQ) ---
EXAM DESCRIPTION: CHEST SINGLE VIEW IMAGES COMPLETED DATE/TIME: 10/18/2020 7:21 am REASON FOR STUDY: confirm central line COMPARISON: 08/07/2020 EXAM PARAMETERS: NUMBER OF VIEWS: One view. TECHNIQUE: Single frontal radiographic view of the chest acquired. RADIATION DOSE: NA LIMITATIONS: None. FINDINGS: LUNGS AND PLEURA: No opacities, masses or pneumothorax. No pleural effusion. MEDIASTINUM AND HILAR STRUCTURES: No masses. Contour normal. HEART AND VASCULAR STRUCTURES: Heart normal in size. Normal vasculature. BONES: No acute findings. HARDWARE: Interval placement of a left internal jugular vascular access catheter terminates in the re gion of the superior vena cava. OTHER: No other significant finding. IMPRESSION: Left IJ placement without evidence of complication. TECHNICAL DOCUMENTATION: JOB ID: [id number] [employer]- All Rights Reserved Reading location - IP/workstation name: [email or web address]
== END 2020-10-18 08:05 | disposition short-term general hospital (02) ==
LOC: ER 22:00
DX: K63.1 Perforation of intestine (nontraumatic) (principal); R10.30 Lower abdominal pain, unspecified; I48.91 Unspecified atrial fibrillation; I25.10 Atherosclerotic heart disease of native coronary artery without angina pectoris; E78.00 Pure hypercholesterolemia, unspecified; I10 Essential (primary) hypertension; E11.9 Type 2 diabetes mellitus without complications; Z20.822 Contact with and (suspected) exposure to COVID-19
CPT/HCPCS: 36556; 76937; 96376; 99291; 96361; 96374; 96375; 36415; 83605; 83690; 85025; 0241U; 80053; 71045; 74177; J3010; J2270; J2405; J7030; C9803